=== PATIENT | female | born 1930 | race Caucasian/White ===

== ENCOUNTER 2016-10-31 10:31 | Observation (INO) | payer MEDICARE, OTHER ==
[2016-10-31] VITALS (11 sets, daily range): BP systolic 154–224; BP diastolic 76–108; PULSE 61–85; RESP 16–20; TEMP 96.7–98.5; O2SAT 94–100
[~2016-10-31] VITALS: Ht 162.6 cm; Wt 60.6 kg
[~2016-10-31 10:31] MED LIST: ALPR.25 PO; AMLO2.5T PO; APIX2.5T PO; BC FPOW12 PO; CIPR250T2 PO; GABA300C3 PO; KCL20 PO; LASI20TA PO; LEVO50TA48 PO; LISI-363 PO; METO50TA PO; METO5TAB46 PO; NITR.4T TD; PRAV40TA2 PO; ULTR50TA PO
[2016-10-31] MEDS ORDERED: SODIUM CHLOR 0.9% 1000 ML INJ 1,000 ML IV SCH (10:35)
[2016-10-31] MEDS ORDERED: SODIUM CHLORIDE 0.9% FLUSH 10 ML FLUSH IVF PRN (10:45)
[2016-10-31] MEDS ORDERED: APIX2.5T PO (10:50)
[2016-10-31] MEDS ORDERED: METO2.5T PO (10:50)
[2016-10-31] MEDS ORDERED: HYDR25TA35 PO (10:50)
[2016-10-31] MEDS ORDERED: ZYVO600T PO (10:50)
[2016-10-31] MEDS ORDERED: POTA10CA PO (10:50)
[2016-10-31] MEDS ORDERED: LEVO50TA4 PO (10:50)
[2016-10-31] MEDS ORDERED: NITR1SUB3 SL (10:50)
[2016-10-31] MEDS ORDERED: MAGN500T2 PO (10:50)
[2016-10-31] MEDS ORDERED: DOCU100C PO (10:50)
[2016-10-31] MEDS ORDERED: FURO40TA PO (10:50)
[2016-10-31] MEDS ORDERED: GABA100C4 PO (10:50)
[2016-10-31] MEDS ORDERED: NORC5TAB PO (10:50)
[2016-10-31] MEDS ORDERED: CITA20TA4 PO (10:50)
[2016-10-31] MEDS ORDERED: PRAV40TA2 PO (10:50)
[2016-10-31] MEDS ORDERED: VENTAER INH (10:50)
[2016-10-31] MEDS ORDERED: PRED2.5T PO (10:50)
[2016-10-31] MEDS ORDERED: LATA0.002 EACH EYE (10:50)
[2016-10-31] MEDS ORDERED: LOPE2CAP PO (10:50)
[2016-10-31] MEDS ORDERED: ALLO100T PO (10:50)
[2016-10-31] MEDS ORDERED: MORP1TAB24 PO (10:50)
[2016-10-31 10:54] LABS: BLOOD, URINE NEG (NEG); GLUCOSE,URINE NEG (NEG); KETONE, URINE NEG (NEG); NITRITE,URINE NEG (NEG)
--- NOTE | 2016-10-31 11:00 | PD ---
HPI Chief Complaint: altered mental status Time Seen by Provider: 10:35 Travel History International Travel<30 days: No Contact w/Intl Traveler<30days: No History of Present Illness HPI Patient is an 86-year-old female who presents to emergency room from [facility] for evaluation of altered mental status and possible UTI. Patient is demented, she is unable to provide history of present illness this time. As per [place], patient does have baseline dementia, reports that she is refusing all her medications for the past 2 days and she appears more altered than normal. After review of records that was brought into ER with patient, patient was recently admitted to [facility] on October 22, 2016 after she had an unwitnessed fall from an assisted living facility. Patient ended up with a left femoral neck fracture, Dr. Yu consulted and performed left hip arthroplasty. Patient does have history of dementia, chronic A. fib on Eliquis , CABG, COPD, cirrhosis of the liver. Patient is currently being treated for a urinary tract infection as she is prescribed Zyvox which was started on 10/26/16-. Patient apparently has not been taking her medications and has been refusing all her medications for past 2 days PFSH Past Medical History Arthritis: Yes Asthma: No Autoimmune Disease: No Blood Disorders: No Anxiety: Yes Depression: Yes Cancer: No Cardiac Catheterization: Yes Cardiovascular Problems: Yes High Cholesterol: No Chemotherapy: No Chest Pain: Yes Congestive Heart Failure: Yes COPD: Yes Cerebrovascular Accident: Yes Diabetes: No Diminished Hearing: Yes ([place]) Endocrine: No Gastrointestinal Disorders: Yes GERD: Yes Gout: Yes Genitourinary: No Headaches: Yes Hypertension: Yes Immune Disorder: No Kidney Stones: No Musculoskeletal: Yes Neurologic: Yes Psychiatric: Yes Reproductive: No Respiratory: No Integumentary: Yes (BILATERAL CELLULITIS) Immunizations Current: Yes Migraines: No Myocardial Infarction: Yes Radiation Therapy: No Renal Failure: No Seizures: No Sleep Apnea: No Thyroid Disease: No Ulcer: Yes Menopausal: Yes Past Surgical History Abdominal Surgery: Yes (PERFORATED ULCER) Cardiac Surgery: Yes Coronary Artery Bypass Graft: Yes (X 3 CABG 06/02/02) Coronary Stent: Yes Ear Surgery: No Endocrine Surgery: No Eye Surgery: No Genitourinary Surgery: No Gynecologic Surgery: Yes (HYSTERECTOMY) Hysterectomy: Yes Insulin Pump: No Joint Replacement: No Pacemaker: No Thoracic Surgery: No Other Surgery: Yes (STEPH BREAST IMPLANTS.) Social History Alcohol Use: Yes (ETOH ABUSE) Tobacco Use: No (QUIT IN 1964) Substance Use: Yes (ETOH ABUSE) Allergies-Medications (Allergen,Severity, Reaction): Coded Allergies: Penicillin (Verified Allergy, Severe, sWELLING, DIFFUCLTY BREATHING, ) Reported Meds & Prescriptions Reported Meds & Active Scripts Active Reported Nitroglycerin SL (Nitroglycerin) 0.4 Mg Subl 0.4 Mg SL DIRECTED PRN ONE TABLET UNDER THE TONGUE NEEDED FOR CHEST PAIN, MAY REPEAT EVERY FIVE MINUTES FOR A TOTAL OF 3 DOSES OR CALL 911 IF NO RELIEF Loperamide (Loperamide HCl) 2 Mg Cap 2 Mg PO DIRECTED PRN One capsule after each loose stool. Not to exceed 8 capsules per day. Ventolin Hfa 18 GM Inh (Albuterol Sulfate) 90 Mcg/Act Aer 2 Puff INH Q6H PRN Morphine ER (Morphine Sulfate) 15 Mg Tab 15 Mg PO BID Metolazone 2.5 Mg Tab 2.5 Mg PO DAILY Levothyroxine (Levothyroxine Sodium) 50 Mcg Tab 50 Mcg PO DAILY Docusate Sodium 100 Mg Cap 100 Mg PO BID Gabapentin 100 Mg Cap 200 Mg PO BID Prednisone 2.5 Mg Tab 2.5 Mg PO DAILY Allopurinol 100 Mg Tab 100 Mg PO DAILY Zyvox (Linezolid) 600 Mg Tab 600 Mg PO Q12H Pravastatin 40 Mg Tab 40 Mg PO DAILY Eliquis (Apixaban) 2.5 Mg Tab 2.5 Mg PO BID Hydralazine (Hydralazine HCl) 25 Mg Tab 25 Mg PO TID Take with a meal Citalopram (Citalopram Hydrobromide) 20 Mg Tab 20 Mg PO DAILY Furosemide 40 Mg Tab 40 Mg PO DAILY Latanoprost Opth Drops (Latanoprost) 0.005% Drops 1 Drop EACH EYE HS Refrigerate until opened. Potassium Chloride ER (Potassium Chloride) 10 Meq Cap 10 Meq PO HS [place] (Hydrocodone-Acetaminophen) 5-325 mg Tab 1 Tab PO Q4H PRN Magnesium Oxide 500 Mg Tab 500 Mg PO BID Review of Systems ROS Limitations: Altered Mental Status Physical Exam Narrative GENERAL: moderate distress SKIN: Focused skin assessment warm/dry. HEAD: Atraumatic. Normocephalic. EYES: Pupils equal and round. No scleral icterus. No injection or drainage. ENT: No nasal bleeding or discharge. Mucous membranes pink and moist. NECK: Trachea midline. No JVD. CARDIOVASCULAR: Regular rate and rhythm. No murmur appreciated. RESPIRATORY: No accessory muscle use. Clear to auscultation. Breath sounds equal bilaterally. GASTROINTESTINAL: Abdomen soft, non-tender, nondistended. Hepatic and splenic margins not palpable. MUSCULOSKELETAL: patient with guarding to right wrist, left hip with no drainage , left hip incisions c/d/i NEUROLOGICAL: Awake and screaming on evaluation.. Motor grossly within normal limits. PSYCHIATRIC: Patient agitated and demented Data Data Last Documented VS Vital Signs Date Time Temp Pulse Resp B/P Pulse Ox O2 Delivery O2 Flow Rate FiO2 10/31/16 11:14 97 Nasal Cannula 4 10/31/16 10:57 65 10/31/16 10:57 98.5 16 173/102 Orders Electrocardiogram (10/31/16 10:35) Complete Blood Count With Diff (10/31/16 10:35) Comprehensive Metabolic Panel (10/31/16 10:35) Creatine Kinase (Cpk) (10/31/16 10:35) Prothrombin Time / Inr (Pt) (10/31/16 10:35) Act Partial Throm Time (Ptt) (10/31/16 10:35) Troponin I (10/31/16 10:35) Lactic Acid Sepsis Protocol (10/31/16 10:35) Urinalysis - C+S If Indicated (10/31/16 10:35) Blood Culture (10/31/16 10:35) Chest, Single Ap (10/31/16 10:35) Blood Glucose (10/31/16 10:35) Ecg Monitoring (10/31/16 10:35) Iv Access Insert/Monitor (10/31/16 10:35) Cath For Specimen (10/31/16 10:35) Oximetry (10/31/16 10:35) Sodium Chloride 0.9% Flush (Ns Flush) (10/31/16 10:45) Sodium Chlor 0.9% 1000 Ml Inj (Ns 1000 M (10/31/16 10:35) Wrist, Complete (Owl9dux) (10/31/16 ) Aspirin Ec (Ecotrin Ec) (10/31/16 12:15) Linezolid 600 Mg Premix (Zyvox 600 Mg Pr (10/31/16 12:15) Admit Order (Ed Use Only) (10/31/16 12:15) Labs Laboratory Tests Test 10/31/16 10/31/16 10:43 10:50 Urine Collection Type CATH Urine Color YELLOW Urine Turbidity CLEAR Urine pH 6.0 Urine Specific [place] 1.020 Urine Protein 30 mg/dL Urine Glucose (UA) NEG mg/dL Urine Ketones NEG mg/dL Urine Occult Blood NEG Urine Nitrite NEG Urine Bilirubin NEG Urine Leukocyte Esterase NEG Urine RBC 0-3 /hpf Urine Renal Epithelial Cells 0-5 /hpf Microscopic Urinalysis Comment CULT NOT INDICATED Urine Collection Time 10:43 White Blood Count 10.0 TH/MM3 Red Blood Count 4.22 MIL/MM3 Hemoglobin 12.5 GM/DL Hematocrit 38.4 % Mean Corpuscular Volume 90.9 FL Mean Corpuscular Hemoglobin 29.6 PG Mean Corpuscular Hemoglobin 32.5 % Concent Red Cell Distribution Width 13.3 % Platelet Count 244 TH/MM3 Mean Platelet Volume 8.2 FL Neutrophils (%) (Auto) 86.6 % Lymphocytes (%) (Auto) 7.0 % Monocytes (%) (Auto) 6.0 % Eosinophils (%) (Auto) 0.2 % Basophils (%) (Auto) 0.2 % Neutrophils # (Auto) 8.7 TH/MM3 Lymphocytes # (Auto) 0.7 TH/MM3 Monocytes # (Auto) 0.6 TH/MM3 Eosinophils # (Auto) 0.0 TH/MM3 Basophils # (Auto) 0.0 TH/MM3 CBC Comment DIFF FINAL Differential Comment Erythrocyte Sedimentation Rate 70 mm/hr Prothrombin Time 12.8 SEC Prothromb Time International 1.2 RATIO Ratio Activated Partial 31.7 SEC Thromboplast Time Sodium Level 144 MEQ/L Potassium Level 3.6 MEQ/L Chloride Level 100 MEQ/L Carbon Dioxide Level 35.0 MEQ/L Anion Gap 9 MEQ/L Blood Urea Nitrogen 40 MG/DL Creatinine 1.40 MG/DL Estimat Glomerular Filtration 35 ML/MIN Rate Random Glucose 133 MG/DL Lactic Acid Level 2.0 mmol/L Calcium Level 9.9 MG/DL Total Bilirubin 0.8 MG/DL Aspartate Amino Transf 36 U/L (AST/SGOT) Alanine Aminotransferase 23 U/L (ALT/SGPT) Alkaline Phosphatase 97 U/L Total Creatine Kinase 54 U/L Troponin I 0.13 NG/ML Total Protein 7.3 GM/DL Albumin 2.7 GM/DL MDM Medical Decision Making Medical Screen Exam Complete: Yes Emergency Medical Condition: Yes Interpretation(s) EKG at 1156: afib at 80bpm Vital Signs Date Time Temp Pulse Resp B/P Pulse Ox O2 Delivery O2 Flow Rate FiO2 10/31/16 10:57 97 Nasal Cannula 4 Laboratory Tests Test 10/31/16 10/31/16 10:43 10:50 Urine Collection Type CATH Urine Color YELLOW (YELLW/STRAW) Urine Turbidity CLEAR (CLEAR) Urine pH 6.0 (5.0-8.5) Urine Specific [place] 1.020 (1.002-1.035) Urine Protein 30 mg/dL (NEG-TRACE) Urine Glucose (UA) NEG mg/dL (NEG) Urine Ketones NEG mg/dL (NEG) Urine Occult Blood NEG (NEG) Urine Nitrite NEG (NEG) Urine Bilirubin NEG (NEG) Urine Leukocyte Esterase NEG (NEG) Urine RBC 0-3 /hpf (0-3) Urine Renal Epithelial Cells 0-5 /hpf (NONE) Microscopic Urinalysis Comment CULT NOT INDICATED Urine Collection Time 10:43 White Blood Count 10.0 TH/MM3 (4.0-11.0) Red Blood Count 4.22 MIL/MM3 (4.00-5.30) Hemoglobin 12.5 GM/DL (11.6-15.3) Hematocrit 38.4 % (35.0-46.0) Mean Corpuscular Volume 90.9 FL (80.0-100.0) Mean Corpuscular Hemoglobin 29.6 PG (27.0-34.0) Mean Corpuscular Hemoglobin 32.5 % Concent (32.0-36.0) Red Cell Distribution Width 13.3 % (11.6-17.2) Platelet Count 244 TH/MM3 (150-450) Mean Platelet Volume 8.2 FL (7.0-11.0) Neutrophils (%) (Auto) 86.6 % (16.0-70.0) Lymphocytes (%) (Auto) 7.0 % (9.0-44.0) Monocytes (%) (Auto) 6.0 % (0.0-8.0) Eosinophils (%) (Auto) 0.2 % (0.0-4.0) Basophils (%) (Auto) 0.2 % (0.0-2.0) Neutrophils # (Auto) 8.7 TH/MM3 (1.8-7.7) Lymphocytes # (Auto) 0.7 TH/MM3 (1.0-4.8) Monocytes # (Auto) 0.6 TH/MM3 (0-0.9) Eosinophils # (Auto) 0.0 TH/MM3 (0-0.4) Basophils # (Auto) 0.0 TH/MM3 (0-0.2) CBC Comment DIFF FINAL Differential Comment Sodium Level 144 MEQ/L (136-145) Potassium Level 3.6 MEQ/L (3.5-5.1) Chloride Level 100 MEQ/L (98-107) Carbon Dioxide Level 35.0 MEQ/L (21.0-32.0) Anion Gap 9 MEQ/L (5-15) Blood Urea Nitrogen 40 MG/DL (7-18) Creatinine 1.40 MG/DL (0.50-1.00) Estimat Glomerular Filtration 35 ML/MIN (>89) Rate Random Glucose 133 MG/DL (74-106) Lactic Acid Level 2.0 mmol/L (0.4-2.0) Calcium Level 9.9 MG/DL (8.5-10.1) Total Bilirubin 0.8 MG/DL (0.2-1.0) Aspartate Amino Transf 36 U/L (15-37) (AST/SGOT) Alanine Aminotransferase 23 U/L (10-53) (ALT/SGPT) Alkaline Phosphatase 97 U/L (45-117) Total Creatine Kinase 54 U/L (26-192) Troponin I 0.13 NG/ML (0.02-0.05) Total Protein 7.3 GM/DL (6.4-8.2) Albumin 2.7 GM/DL (3.4-5.0) Last Impressions Chest X-Ray 10/31/16 1035 Signed Impressions: Service Date/Time: Monday, October 31, 2016 11:11 - CONCLUSION: Cardiomegaly without infiltrate. Minimal scarring minor fissure. Rauilto Simental MD Wrist X-Ray 10/31/16 0000 Signed Impressions: Service Date/Time: Monday, October 31, 2016 11:06 - CONCLUSION: 1. Soft tissue swelling or arthritic changes. 2. No fracture. 3. Chondrocalcinosis. Raulito Simental MD Differential Diagnosis UTI, dementia, electrolyte abnormality, pneumonia Narrative Course Patient is an 86-year-old female who presents to emergency room from [facility] for altered mental status. It appears the patient has a urinary tract infection, patient with most likely Enterococcus Faecalis UTI and is currently on zyvox 600mg (october 26-november 05) - and patient has not taken this medication for the past 2 days. Patient with most likely dementia with increased altered mental status secondary to UTI. Plan to obtain lab work, we'll straight catheter for urine, will give IV antibiotics as patient is refusing to take any medications by mouth. Patient will require admission to the hospital. X-ray of the right wrist ordered as patient is guarding her right wrist. Laboratory Tests Test 10/31/16 10/31/16 10:43 10:50 Urine Collection Type CATH Urine Color YELLOW (YELLW/STRAW) Urine Turbidity CLEAR (CLEAR) Urine pH 6.0 (5.0-8.5) Urine Specific [place] 1.020 (1.002-1.035) Urine Protein 30 mg/dL (NEG-TRACE) Urine Glucose (UA) NEG mg/dL (NEG) Urine Ketones NEG mg/dL (NEG) Urine Occult Blood NEG (NEG) Urine Nitrite NEG (NEG) Urine Bilirubin NEG (NEG) Urine Leukocyte Esterase NEG (NEG) Urine RBC 0-3 /hpf (0-3) Urine Renal Epithelial Cells 0-5 /hpf (NONE) Microscopic Urinalysis Comment CULT NOT INDICATED Urine Collection Time 10:43 White Blood Count 10.0 TH/MM3 (4.0-11.0) Red Blood Count 4.22 MIL/MM3 (4.00-5.30) Hemoglobin 12.5 GM/DL (11.6-15.3) Hematocrit 38.4 % (35.0-46.0) Mean Corpuscular Volume 90.9 FL (80.0-100.0) Mean Corpuscular Hemoglobin 29.6 PG (27.0-34.0) Mean Corpuscular Hemoglobin 32.5 % Concent (32.0-36.0) Red Cell Distribution Width 13.3 % (11.6-17.2) Platelet Count 244 TH/MM3 (150-450) Mean Platelet Volume 8.2 FL (7.0-11.0) Neutrophils (%) (Auto) 86.6 % (16.0-70.0) Lymphocytes (%) (Auto) 7.0 % (9.0-44.0) Monocytes (%) (Auto) 6.0 % (0.0-8.0) Eosinophils (%) (Auto) 0.2 % (0.0-4.0) Basophils (%) (Auto) 0.2 % (0.0-2.0) Neutrophils # (Auto) 8.7 TH/MM3 (1.8-7.7) Lymphocytes # (Auto) 0.7 TH/MM3 (1.0-4.8) Monocytes # (Auto) 0.6 TH/MM3 (0-0.9) Eosinophils # (Auto) 0.0 TH/MM3 (0-0.4) Basophils # (Auto) 0.0 TH/MM3 (0-0.2) CBC Comment DIFF FINAL Differential Comment Sodium Level 144 MEQ/L (136-145) Potassium Level 3.6 MEQ/L (3.5-5.1) Chloride Level 100 MEQ/L (98-107) Carbon Dioxide Level 35.0 MEQ/L (21.0-32.0) Anion Gap 9 MEQ/L (5-15) Blood Urea Nitrogen 40 MG/DL (7-18) Creatinine 1.40 MG/DL (0.50-1.00) Estimat Glomerular Filtration 35 ML/MIN (>89) Rate Random Glucose 133 MG/DL (74-106) Lactic Acid Level 2.0 mmol/L (0.4-2.0) Calcium Level 9.9 MG/DL (8.5-10.1) Total Bilirubin 0.8 MG/DL (0.2-1.0) Aspartate Amino Transf 36 U/L (15-37) (AST/SGOT) Alanine Aminotransferase 23 U/L (10-53) (ALT/SGPT) Alkaline Phosphatase 97 U/L (45-117) Total Creatine Kinase 54 U/L (26-192) Troponin I 0.13 NG/ML (0.02-0.05) Total Protein 7.3 GM/DL (6.4-8.2) Albumin 2.7 GM/DL (3.4-5.0) Last Impressions Chest X-Ray 10/31/16 1035 Signed Impressions: Service Date/Time: Monday, October 31, 2016 11:11 - CONCLUSION: Cardiomegaly without infiltrate. Minimal scarring minor fissure. Raulito Simental MD Wrist X-Ray 10/31/16 0000 Signed Impressions: Service Date/Time: Monday, October 31, 2016 11:06 - CONCLUSION: 1. Soft tissue swelling or arthritic changes. 2. No fracture. 3. Chondrocalcinosis. Raulito Simental MD Patient's son at bedside, reviewed all labs and all studies with him in detail. Patient does have a positive troponin, troponin is 0.13, as per son, patient' s button inspector is Dr. Hagen with [facility]. Labs were reviewed, patient with normal white blood cell count, creatinine is mildly elevated at 1.40, UA with no signs of infection plan to obs for positive trop to [facility], unsure why patient's trop is mildly elevated. plan to trend trops while admitted to hospital Will give IV dose of zyvox for treatment of pseudomonas uti as she is supposed to be on zyvox until 11/05/[address] gooden who accepts pt to service Diagnosis Primary Impression: NSTEMI (non-ST elevated myocardial infarction) Additional Impressions: Dehydration Altered mental status, unspecified Admitting Information Admitting Physician Requests: Bridgette Claros DO October 31, 2016 11:00
[2016-10-31 11:03] LABS: METHOD OF COLLECTION CATH; URINE COLOR YELLOW (YELLW/STRAW)
[2016-10-31 11:04] LABS: COMMENT (UR) CULT NOT INDICATED; CULTURE IF INDICATED CULT NOT INDICATED; RBC, URINE 0-3 /hpf (0-3); RENAL EPITHELIAL CELLS 0-5 /hpf
[2016-10-31 11:09] LABS: AUTOMATED NEUTROPHIL # 8.7 TH/MM3 (1.8-7.7); BASOPHIL % 0.2 % (0.0-2.0); EOSINOPHIL % 0.2 % (0.0-4.0); HEMATOCRIT 38.4 % (35.0-46.0); HEMO FLAGS DIFF FINAL; LYMPHOCYTE # 0.7 TH/MM3 (1.0-4.8); MEAN CELL VOLUME 90.9 FL (80.0-100.0); MEAN CORPUSCULAR HEMOGLOBIN 29.6 PG (27.0-34.0); MEAN CORPUSCULAR HGB CONC 32.5 % (32.0-36.0); NEUT % 86.6 % (16.0-70.0); PLATELET COUNT 244 TH/MM3 (150-450); RED BLOOD COUNT 4.22 MIL/MM3 (4.00-5.30); RED CELL DISTRIBUTION WIDTH 13.3 % (11.6-17.2)
[2016-10-31 11:24] LABS: CHLORIDE 100 MEQ/L (98-107); POTASSIUM 3.6 MEQ/L (3.5-5.1); SODIUM (NA) 144 MEQ/L (136-145)
[2016-10-31 11:27] LABS: ANION GAP 9 MEQ/L (5-15)
[2016-10-31 11:28] LABS: BLOOD UREA NITROGEN 40 MG/DL (7-18)
[2016-10-31 11:31] LABS: ALT (GPT) 23 U/L (10-53); AST (GOT) 36 U/L (15-37); GLOMERULAR FILTRATION RATE 35 ML/MIN (>89)
--- NOTE | 2016-10-31 11:31 | RADHPO ---
EXAM DATE/TIME: 10/31/2016 11:11 [facility] COMPARISON: CHEST SINGLE AP, November 04, 2014, 14:15. INDICATIONS : Short of breath. Altered mental status MEDICAL HISTORY : None. SURGICAL HISTORY : CABG. ENCOUNTER: Initial ACUITY: 1 day PAIN SCORE: Non-responsive. LOCATION: Bilateral chest FINDINGS: A single view of the chest demonstrates cardiomegaly and tortuous thoracic aorta. Previous CABG. Mini mal scarring along the minor fissure. Osseous structures are intact. CONCLUSION: Cardiomegaly without infiltrate. Minimal scarring minor fissure. Raulito Simental MD on October 31, 2016 at 11:28 Board Certified Radiologist. This report was verified electronically.
[2016-10-31 11:32] LABS: TOTAL BILIRUBIN ADULT 0.8 MG/DL (0.2-1.0)
[2016-10-31 11:33] LABS: ALKALINE PHOSPHATASE 97 U/L (45-117)
--- NOTE | 2016-10-31 11:33 | RADHPO ---
EXAM DATE/TIME: 10/31/2016 11:06 [facility] COMPARISON: No previous studies available for comparison. INDICATIONS : Right wrist pain with no known injury MEDICAL HISTORY : None. SURGICAL HISTORY : None. ENCOUNTER: Initial ACUITY: 1 day PAIN SCORE: Non-responsive. LOCATION: Right wrist FINDINGS: Three view examination of the right wrist demonstrates soft tissue swelling and arthropathy. Chondroc alcinosis. Bony mineralization is normal. CONCLUSION: 1. Soft tissue swelling or arthritic changes. 2. No fracture. 3. Chondrocalcinosis. Raulito Simental MD on October 31, 2016 at 11:31 Board Certified Radiologist. This report was verified electronically.
[2016-10-31 11:42] LABS: CREATINE KINASE 54 U/L (26-192)
[2016-10-31] MEDS: ASPIRIN EC 81 MG TABEC PO ONE ×2 (12:15→12:27)
[2016-10-31] MEDS ORDERED: LINEZOLID 600 MG PREMIX 300 ML IV ONE (12:15)
[2016-10-31] MEDS ORDERED: ASPIRIN 81 MG CHEW TAB CHEW ONE (12:45)
[2016-10-31 12:48] LABS: APTT (PATIENT) 31.7 SEC (24.3-30.1); INTERNATIONAL NORMALIZED RATIO 1.2 RATIO; PROTHROMBIN TIME - PATIENT 12.8 SEC (9.8-11.6)
[2016-10-31] MEDS ORDERED: hydrALAZINE HCL 20 MG/ML VIAL IV PUSH ONE (13:00)
[2016-10-31] MEDS ORDERED: SODIUM CHLORIDE 0.9% FLUSH 10 ML FLUSH IV FLUSH PRN (13:15)
[2016-10-31] MEDS ORDERED: ONDANSETRON HCL 4 MG/2 ML VIAL IVP PRN (13:15)
[2016-10-31] MEDS: SODIUM CHLOR 0.45% 1000 ML INJ 1,000 ML IV SCH (13:46)
[2016-10-31] MEDS ORDERED: HEPARIN SODIUM - SQ 10,000 UNITS/ML VIAL SQ SCH (14:00)
[2016-10-31] MEDS ORDERED: ENALAPRILAT 1.25 MG/ML VIAL IV PUSH PRN (17:15)
[2016-10-31] MEDS ORDERED: HALOPERIDOL LACTATE 5 MG/ML AMP IV PUSH ONE (17:30)
--- NOTE | 2016-10-31 17:32 | HHI.HP ---
[facility] Service [facility] Primary Care Physician Meli Acosta MD Admission Diagnosis NSTEMI, AMS, Delirium Diagnoses: (1) Encephalopathy, unspecified Diagnosis: Principal (2) Hypertensive urgency Diagnosis: Principal (3) Elevated troponin Diagnosis: Principal (4) Chronic kidney disease, stage 3 Diagnosis: Secondary (5) Atrial fibrillation Diagnosis: Secondary (6) Chronic ischemic right MCA stroke Diagnosis: Secondary (7) COPD (chronic obstructive pulmonary disease) Diagnosis: Secondary Chief Complaint: Patient sent from local nursing facility because of change in mentation Travel History International Travel<30 Days: No Contact w/Intl Traveler <30 Da: No Traveled to Known Affected Are: No History of Present Illness 86-year-old female with dementia, mental status who is brought to the emergency department from local nursing facility because of worsening mentation. The patient herself cannot give any information, information was taken from medical records, nursing staff, retirement records. Family patient is a recent hospitalization at [facility] on October 22, 2016 because she had unwitnessed fall at assisted living facility. Where she had a left femoral neck fracture. Patient did undergo left hip arthroplasty by Dr. Yu at that time. Patient was found to have urinary tract infection was treated with Zyvox. However patient was transferred to [facility] for continued management and care. Apparently the patient has had worsening of her mentation aware of the last 2 day she has been refusing taking any of her medications. Patient came very aggressive and not taking her meds so retirement sent the patient to the hospital for evaluation. Upon presentation patient had significantly elevated hypertension with hypertensive urgency. Patient was given Apresoline in emergency department with minimal results. Patient was found to have elevated troponin level and that point it recommended by ER physician the patient be observed in the hospital for continued management and care. Upon seeing the patient she is unable to give any information. Significant change in mentation, unknown what her baseline is from her dementia. Review of Systems ROS Limitations: Altered Mental Status, Poor Historian Past Family Social History Past Medical History Hypertension Chronic atrial fibrillation Coronary artery disease Hyperlipidemia Degenerative joint disease Anxiety/depression Chronic congestive heart failure Chronic obstructive pulmonary disease History of CVA Gastroesophageal reflux Hypertension History of peptic ulcer disease Recent hip fracture Dementia Hypothyroidism Peripheral neuropathy Chronic venous stasis Past Surgical History Abdominal hysterectomy Appendectomy Bilateral salpingo-oophorectomy Breast augmentation Coronary bypass surgery Cataract surgery Cardiac catheterization with stenting Esophageal dilatation Exploratory laparotomy Femoral artery bypass surgery Lumbar discectomy Reported Medications Last Impressions Chest X-Ray 10/31/16 1035 Signed Impressions: Service Date/Time: Monday, October 31, 2016 11:11 - CONCLUSION: Cardiomegaly without infiltrate. Minimal scarring minor fissure. Raulito Simental MD Wrist X-Ray 10/31/16 0000 Signed Impressions: Service Date/Time: Saturday, October 31, 2016 11:06 - CONCLUSION: 1. Soft tissue swelling or arthritic changes. 2. No fracture. 3. Chondrocalcinosis. Raulito Simental MD Allergies: Coded Allergies: Penicillin (Verified Allergy, Severe, sWELLING, DIFFUCLTY BREATHING, ) Family History Records reviewed and is no indication of any heart disease, lung disease, diabetes, cancer Social History Records reviewed is indicated patient has history of smoking and quit 15 years ago. There is no indication of alcohol or illicit drugs. Physical Exam Vital Signs Vital Signs Date Time Temp Pulse Resp B/P Pulse Ox O2 Delivery O2 Flow Rate FiO2 10/31/16 16:43 98.2 61 17 196/91 94 10/31/16 14:00 67 10/31/16 13:26 80 18 190/76 100 Nasal Cannula 2 10/31/16 13:19 85 222/84 10/31/16 12:55 73 18 224/102 100 Nasal Cannula 4 10/31/16 11:14 97 Nasal Cannula 4 10/31/16 10:57 65 97 Nasal Cannula 4 10/31/16 10:57 98.5 80 16 173/102 97 Nasal Cannula 4 Physical Exam GENERAL: Well-developed, well-nourished, in no acute distress. Awake but unable to obtain any orientation HEENT: Head is normocephalic without any lesions or masses noted. Facial features are symmetric. Patient does have a erythematous papular rash Eyes: Pupils equal round reactive to light. Extraocular muscles are intact. Conjunctivae were clear. Oropharyngeal: Pharynx without any erythema edema. Tongue is midline without deviation. Buccal mucosa is moist without any masses or lesions. NECK: Supple without any masses. Trachea midline no deviation. No JVD, no bruits are appreciated CARDIAC: Regular rhythm, regular rate. S1/S2 are heard. 2/6 ejection murmur noted at second left sternal border. No gallops or rubs. LUNGS: Clear to auscultation bilaterally. No wheeze, rhonchi or rales. No use of accessory muscles on inspiration or expiration. ABDOMEN: Soft, nontender. Nondistended. Bowel sounds heard in all 4 quadrants. No organomegaly or masses. Negative rebound, negative guarding EXTREMITIES: No edema, pulses are equal bilaterally. No cyanosis or clubbing NEUROLOGY: Mood and affect appear appropriate. Cranial nerves II through XII grossly intact. Muscle strength 5/5 in upper and lower extremities bilaterally. Deep tendon reflexes are 2+ in upper and lower extremities bilaterally. Laboratory Laboratory Tests Test 10/31/16 10/31/16 10:43 10:50 Urine Collection Type CATH Urine Color YELLOW Urine Turbidity CLEAR Urine pH 6.0 Urine Specific [place] 1.020 Urine Protein 30 Urine Glucose (UA) NEG Urine Ketones NEG Urine Occult Blood NEG Urine Nitrite NEG Urine Bilirubin NEG Urine Leukocyte Esterase NEG Urine RBC 0-3 Urine Renal Epithelial Cells 0-5 Microscopic Urinalysis Comment CULT NOT INDICATED Urine Collection Time 10:43 White Blood Count 10.0 Red Blood Count 4.22 Hemoglobin 12.5 Hematocrit 38.4 Mean Corpuscular Volume 90.9 Mean Corpuscular Hemoglobin 29.6 Mean Corpuscular Hemoglobin 32.5 Concent Red Cell Distribution Width 13.3 Platelet Count 244 Mean Platelet Volume 8.2 Neutrophils (%) (Auto) 86.6 Lymphocytes (%) (Auto) 7.0 Monocytes (%) (Auto) 6.0 Eosinophils (%) (Auto) 0.2 Basophils (%) (Auto) 0.2 Neutrophils # (Auto) 8.7 Lymphocytes # (Auto) 0.7 Monocytes # (Auto) 0.6 Eosinophils # (Auto) 0.0 Basophils # (Auto) 0.0 CBC Comment DIFF FINAL Differential Comment Prothrombin Time 12.8 Prothromb Time International 1.2 Ratio Activated Partial 31.7 Thromboplast Time Sodium Level 144 Potassium Level 3.6 Chloride Level 100 Carbon Dioxide Level 35.0 Anion Gap 9 Blood Urea Nitrogen 40 Creatinine 1.40 Estimat Glomerular Filtration 35 Rate Random Glucose 133 Lactic Acid Level 2.0 Calcium Level 9.9 Total Bilirubin 0.8 Aspartate Amino Transf 36 (AST/SGOT) Alanine Aminotransferase 23 (ALT/SGPT) Alkaline Phosphatase 97 Total Creatine Kinase 54 Troponin I 0.13 Total Protein 7.3 Albumin 2.7 Date/Time Procedure Status Source Growth 10/31/16 10:55 Aerobic Blood Culture Received Blood Peripheral Pending 10/31/16 10:55 Anaerobic Blood Culture Received Blood Peripheral Pending Result Diagram: 10/31/16 1050 10/31/16 1050 Imaging Last Impressions Chest X-Ray 10/31/16 1035 Signed Impressions: Service Date/Time: Monday, October 31, 2016 11:11 - CONCLUSION: Cardiomegaly without infiltrate. Minimal scarring minor fissure. Raulito Simental MD Wrist X-Ray 10/31/16 0000 Signed Impressions: Service Date/Time: Monday, October 31, 2016 11:06 - CONCLUSION: 1. Soft tissue swelling or arthritic changes. 2. No fracture. 3. Chondrocalcinosis. Raulito Simental MD Assessment and Plan Assessment and Plan Encephalopathy, unspecified Likely secondary to urinary tract infection, worsening dementia from change in home environment, not taking medications, hypertensive urgency We'll control blood pressure, continue treatment for urinary tract infection, see if patient improves Start Haldol for any agitation or aggression Obtain further labs to include B12, folate, TSH, RPR, sedimentation rate We'll obtain CT scan of the brain Hypertensive urgency Secondary to patient not taking her medication from the encephalopathy Start Apresoline, Vasotec IV as needed for systolic blood pressure greater than 160, diastolic blood pressure greater than 90 Once patient is more alert, resume home medications Elevated troponin, non-ST elevated myocardial infarction Likely secondary to hypertensive urgency Patient was given aspirin emergency department We'll start Nitropaste Check lipid panel Continue trending cardiac enzymes and EKGs Urinary tract infection Urinalysis did not indicate any acute abnormality during this hospitalization Resume Zyvox Chronic obstructive pulmonary disease Continue O2 supplementation maintain O2 sats greater than 92% Duo nebs as needed Incentive spirometry Coronary artery disease, hyperlipidemia, chronic atrial fibrillation Continue home medication when patient is more alert and tolerate oral medications Patient is on Eliquis for anticoagulation, will resume when patient is able tolerate by mouth medication Hypothyroidism Check TSH Resume replacement therapy when patient is able tolerate by mouth medications DVT prevention Sequential compression devices, resume Eliquis with patient is more alert and can tolerate by mouth medications Written by Lauro Nichole, acting as scribe for Dr. Rodriguez on 10/31/16 at 17:30. This note was transcribed by scribe Lauro Nichole. I, Dr. Basilio Sosa personally performed the history, physical exam, and medical decision making; and confirmed the accuracy of the information in the transcribed note. Authenticated by Dr. Basilio Sosa on 10/31/16 at 21:59. Problem Qualifiers (1) COPD (chronic obstructive pulmonary disease): Qualified Code: J44.9 - Chronic obstructive pulmonary disease, unspecified COPD type Lauro Nichole October 31, 2016 17:32 Basilio Johnson MD October 31, 2016 21:58
[2016-10-31] MEDS ORDERED: RESP: ALBUTEROL 2.5 MG/IPRATROPIUM 0.5 MG NEB (PRN) NEB (17:45)
[2016-10-31] MEDS: NITROGLYCERIN 2% OINT 1 GM PACKET TOPICAL SCH (18:30)
[2016-10-31] MEDS: SODIUM CHLORIDE 0.9% FLUSH 10 ML FLUSH IV FLUSH SCH (21:00)
[2016-10-31] MEDS: hydrALAZINE HCL 20 MG/ML VIAL IV PUSH PRN (21:01)
[2016-10-31 23:09] LABS: CREATINE KINASE 79 U/L (26-192)
[2016-11-01] VITALS (9 sets, daily range): BP systolic 167–215; BP diastolic 75–109; PULSE 79–92; RESP 18–21; TEMP 96.7–99.2; O2SAT 92–98
[2016-11-01] MEDS: LINEZOLID 600 MG PREMIX 300 ML IV SCH ×3 (00:40→23:49)
[2016-11-01] MEDS: NITROGLYCERIN 2% OINT 1 GM PACKET TOPICAL SCH ×5 (00:40→23:49)
[2016-11-01] MEDS: SODIUM CHLOR 0.45% 1000 ML INJ 1,000 ML IV SCH ×2 (03:06→13:04)
[2016-11-01] MEDS: hydrALAZINE HCL 20 MG/ML VIAL IV PUSH PRN ×2 (07:01→21:45)
[2016-11-01 07:45] LABS: AUTOMATED NEUTROPHIL # 8.9 TH/MM3 (1.8-7.7); BASOPHIL # 0.2 TH/MM3 (0-0.2); EOSINOPHIL # 0.1 TH/MM3 (0-0.4); EOSINOPHIL % 0.7 % (0.0-4.0); HEMATOCRIT 36.4 % (35.0-46.0); LYMPH % 7.3 % (9.0-44.0); LYMPHOCYTE # 0.8 TH/MM3 (1.0-4.8); MEAN CELL VOLUME 92.2 FL (80.0-100.0); MEAN CORPUSCULAR HEMOGLOBIN 30.1 PG (27.0-34.0); MEAN CORPUSCULAR HGB CONC 32.6 % (32.0-36.0); MONO % 4.7 % (0.0-8.0); NEUT % 85.3 % (16.0-70.0); PLATELET COUNT 229 TH/MM3 (150-450); RED BLOOD COUNT 3.95 MIL/MM3 (4.00-5.30); RED CELL DISTRIBUTION WIDTH 13.7 % (11.6-17.2); WHITE BLOOD COUNT 10.5 TH/MM3 (4.0-11.0)
[2016-11-01 07:53] LABS: HEMO FLAGS DIFF FINAL
[2016-11-01 08:14] LABS: ALKALINE PHOSPHATASE 88 U/L (45-117); ALT (GPT) 19 U/L (10-53); ANION GAP 11 MEQ/L (5-15); AST (GOT) 33 U/L (15-37); BICARBONATE 28.7 MEQ/L (21.0-32.0); BLOOD UREA NITROGEN 28 MG/DL (7-18); CHLORIDE 100 MEQ/L (98-107); GLOMERULAR FILTRATION RATE 59 ML/MIN (>89); SODIUM (NA) 140 MEQ/L (136-145); TOTAL BILIRUBIN ADULT 0.7 MG/DL (0.2-1.0)
[2016-11-01 08:19] LABS: POTASSIUM 2.9 MEQ/L (3.5-5.1)
[2016-11-01] MEDS: SODIUM CHLORIDE 0.9% FLUSH 10 ML FLUSH IV FLUSH SCH ×2 (08:20→21:00)
--- NOTE | 2016-11-01 08:55 | RADHPO ---
EXAM DATE/TIME: 11/01/2016 08:33 [place] COMPARISON: CT BRAIN W/O CONTRAST, December 15, 2014, 22:02. INDICATIONS : Altered mental status. RADIATION DOSE: 41.47 CTDIvol (mGy) MEDICAL HISTORY : Congestive hearrt failure. Cerebrovascular disease. Chronic obstructive pulmonary disease.Hypertensi on. Dementia. SURGICAL HISTORY : Hysterectomy. CABG ENCOUNTER: Initial ACUITY: 2 days PAIN SCALE: Non-responsive LOCATION: cranial TECHNIQUE: Multiple contiguous axial images were obtained of the head. Using automated exposure control and adj ustment of the mA and/or kV according to patient size, radiation dose was kept as low as reasonably a chievable to obtain optimal diagnostic quality images. FINDINGS: CEREBRUM: Cerebral atrophy and scattered areas of low attenuation in periventricular white matter. Small areas of encephalomalacia in the lateral lower right parietal lobe. The ventricles are normal for age. No evidence of midline shift, mass lesion, hemorrhage or acute infarction. No extra-axial fluid collect ions are seen. POSTERIOR FOSSA: The cerebellum and brainstem are intact. The 4th ventricle is midline. The cerebellopontine angle i s unremarkable. EXTRACRANIAL: The visualized portion of the orbits is intact. SKULL: The calvaria is intact. No evidence of skull fracture. CONCLUSION: 1. Old small right parietal infarct. 2. Cerebral atrophy and chronic ischemic small vessel vasculopathy. Raulito Simental MD on November 01, 2016 at 8:52 Board Certified Radiologist. This report was verified electronically.
[2016-11-01] MEDS ORDERED: ALBUTEROL SULFATE 90 MCG/ACT HFA 8 GM INHALER INH PRN (09:45)
[2016-11-01 10:11] LABS: HDL CHOLESTEROL 52.8 MG/DL (40.0-60.0); LDL CHOLESTEROL 82 MG/DL (0-99)
[2016-11-01] MEDS: POTASSIUM CHLOR 20 MEQ PREMIX 100 ML IV SCH ×2 (10:23→12:23)
[2016-11-01 10:44] LABS: RAPID PLASMA REAGIN SCREEN NON-REACTIVE (NON-REACTVE)
--- NOTE | 2016-11-01 11:01 | HHI.PR ---
Subjective Remarks Patient laying in bed awake alert she was able to mention her name otherwise she was unable to answer any question she smiles sometimes, her son was at the bedside, he stated this is her baseline since she has her fall. Report from the nurse the patient continued to refuse to take her pills which is initially caused her to be hospitalized for hypertensive urgency Blood pressure dropped from 215/109 to 174/80 Objective Vitals Vital Signs Date Time Temp Pulse Resp B/P Pulse Ox O2 Delivery O2 Flow Rate FiO2 11/01/16 08:00 98.1 86 20 174/80 98 11/01/16 07:43 174/80 11/01/16 06:58 215/109 11/01/16 04:00 96.7 85 21 196/76 96 11/01/16 00:00 97.2 90 20 194/83 97 11/01/16 00:00 97.2 90 20 194/83 97 10/31/16 22:00 154/98 10/31/16 22:00 154/98 10/31/16 21:09 169/98 10/31/16 20:00 96.7 85 20 215/108 95 10/31/16 19:20 95 21 10/31/16 16:43 98.2 61 17 196/91 94 10/31/16 14:00 67 10/31/16 13:26 80 18 190/76 100 Nasal Cannula 2 10/31/16 13:19 85 222/84 10/31/16 12:55 73 18 224/102 100 Nasal Cannula 4 10/31/16 11:14 97 Nasal Cannula 4 10/31/16 10:57 65 97 Nasal Cannula 4 10/31/16 10:57 98.5 80 16 173/102 97 Nasal Cannula 4 I/O 10/31/16 10/31/16 10/31/16 11/01/16 11/01/16 11/01/16 06:59 14:59 22:59 06:59 14:59 22:59 Intake Total 25 ml 1348 ml Balance 25 ml 1348 ml Intake Oral 25 ml IV Total 1348 ml # Voids 3 3 Result Diagram: 11/01/16 0735 11/01/16 0735 Imaging Last Impressions Head CT 11/01/16 0740 Signed Impressions: Service Date/Time: October 08:33 - CONCLUSION: 1. Old small right parietal infarct. 2. Cerebral atrophy and chronic ischemic small vessel vasculopathy. Raulito Simental MD Chest X-Ray 10/31/16 1035 Signed Impressions: Service Date/Time: Monday, October 31, 2016 11:11 - CONCLUSION: Cardiomegaly without infiltrate. Minimal scarring minor fissure. Raulito Simental MD Wrist X-Ray 10/31/16 0000 Signed Impressions: Service Date/Time: Monday, October 31, 2016 11:06 - CONCLUSION: 1. Soft tissue swelling or arthritic changes. 2. No fracture. 3. Chondrocalcinosis. Raulito Simental MD Objective Remarks GENERAL: This is a well-nourished, frail elderly 86 years old female who is demented looks comfortable SKIN: No rashes, warm and dry HEAD: Atraumatic. Normocephalic. EYES: Pupils equal round and reactive. Extraocular motions intact. No scleral icterus. ENT: Nose without bleeding, or drainage, Airway patent. NECK: Trachea midline. Supple CARDIOVASCULAR: Regular rate and rhythm without murmurs, gallops, or rubs. RESPIRATORY: Fair air entry bilaterally. No wheezes, rales, or rhonchi. GASTROINTESTINAL: Abdomen soft, non-tender, nondistended. Positive bowel sounds MUSCULOSKELETAL: Extremities without clubbing, cyanosis, or edema. Pedal pulses appreciated, very tender to touch or movement lower extremity NEUROLOGICAL: Awake and alert but demented. Moves upper extremity, lower extremity very tender to touch or doing any movement. Patient only mention her name A/P Problem List: (1) Encephalopathy, unspecified ICD Code: G93.40 Status: Acute (2) Hypertensive urgency ICD Code: I16.0 Status: Acute (3) Elevated troponin ICD Code: R74.8 Status: Acute (4) Chronic kidney disease, stage 3 ICD Code: N18.3 Status: Acute (5) Atrial fibrillation ICD Code: I48.91 Status: Acute (6) Chronic ischemic right MCA stroke ICD Code: Z86.73 Status: Acute (7) COPD (chronic obstructive pulmonary disease) ICD Code: J44.9 Status: Acute Assessment and Plan 11/01: Patient continued to refuse pills, blood pressure is managed through iv medication, will consult palliative care, discussed with the son and with the nurse 86 years old female presented to the ED with Encephalopathy, unspecified Likely secondary to urinary tract infection, worsening dementia from change in home environment, not taking medications, hypertensive urgency We'll control blood pressure, continue treatment for urinary tract infection, see if patient improves Start Haldol for any agitation or aggression Obtain further labs to include B12, folate, TSH, RPR, sedimentation rate We'll obtain CT scan of the brain Hypertensive urgency Secondary to patient not taking her medication from the encephalopathy Start Apresoline when necessary, Nitropaste, Vasotec IV as needed for systolic blood pressure greater than 160, diastolic blood pressure greater than 90 Once patient is more alert, resume home medications however patient refused the pills Elevated troponin, non-ST elevated myocardial infarction Likely secondary to hypertensive urgency Patient was given aspirin emergency department On Nitropaste Check lipid panel Continue trending cardiac enzymes and EKGs Urinary tract infection Urinalysis did not indicate any acute abnormality during this hospitalization Resume Zyvox Chronic obstructive pulmonary disease Continue O2 supplementation maintain O2 sats greater than 92% Duo nebs as needed Incentive spirometry Coronary artery disease, hyperlipidemia, chronic atrial fibrillation Continue home medication when patient is more alert and tolerate oral medications Patient is on Eliquis for anticoagulation, will resume when patient is able tolerate by mouth medication Hypothyroidism TSH WNL Resume replacement therapy when patient is able tolerate by mouth medications DVT prevention Sequential compression devices, resume Eliquis with patient is more alert and can tolerate by mouth medications Problem Qualifiers (1) COPD (chronic obstructive pulmonary disease): Qualified Code: J44.9 - Chronic obstructive pulmonary disease, unspecified COPD type Alexus Conner MD November 01, 2016 11:01
--- NOTE | 2016-11-01 12:39 | PD.CONS ---
Consult Service Palliative Care . Consult Requested By Dr. Conner . Primary Care Physician Meli Acosta MD . Reason for Consultation a. To assist with evaluation and management of symptoms including: delirium ; pain b. To assist medical decision maker(s) with: better understanding of current medical conditions; weighing benefits/burdens of medical treatment options; making medical treatment decisions. . HPI History of Present Illness Ms Moya is an 86-year-old female usp LONG-TERM resident now at [facility] with a complicated medical history including dementia ; coronary artery disease status post bypass surgery; chronic atrial fibrillation on Eilquis; COPD; hepatic cirrhosis; and recent repair of a left femoral neck fracture earlier this month; who was sent from her facility to the [facility] emergency room In [place] because of altered mental status and refusal to take any of her medications. The patient was also being actively treated for urinary tract infection (snf notes suggest this was from Enterococcus faecalis)she was prescribed Zyvox which she was to take from 11/07 through 11/05/16 but apparently refused to take the medication for the 2 days leading up to the emergency room visit. Ms. Moya had an ND and CABG in 2001. Per her son, she continues to have episodic chest pains and use NTG. Son reports that Ms. Moya was in isolation at the rehab facility due to her UTI.. They attempted to assist with rehab in her room, but the patient was in pain every time they tried to touch her and essentially no rehabilitation has been accomplished since her hip fracture repair. Vital signs in the emergency room are as follows: Temperature 98.5; pulse 65; respiratory rate 16; blood pressure 173/102; pulse oximetry 97% on O2 via nasal cannula at 4 L a minute. Physical examination by the emergency department chair noted the following: Patient appeared to be in moderate distress -- she was awake and screaming on evaluation.. There was guarding of the right wrist. The remainder of the exam was unremarkable. Initial diagnostic testing revealed the following: * CBC showed WBC 10.0; hemoglobin 12.5; platelet count 244 * Urinalysis was benign appearing * Serum chemistry showed sodium 144; potassium 3.6; chloride 100; CO2 35; anion gap 9; BUN 40; creatinine 1.4; GFR 35; glucose 133; lactic acid 2.0; calcium 9.9 * Liver function studies showed total bilirubin 0.8; AST 36; ALT 23; alkaline phosphatase 97; total protein 7.3; albumin 2.7 * Cardiac serology showed total CK at 54; troponin at 0.13 * EKG revealed atrial fibrillation at a rate of 80 bpm * Chest x-ray showed cardiomegaly without infiltrate. * X-ray of the wrist showed some soft tissue swelling and arthritic changes but no fracture. The ER physician felt that the patient's symptoms are most likely due to her urinary tract infection for which she had stopped taking her Zyvox. Given the elevated troponins there were also concerns about a possible non-ST elevation myocardial infarction. In the emergency department the blood pressure went up as high as 224/102. She was given a Apresoline in the emergency department without significant results. The patient was admitted to the hospitalist team. Since arriving in the emergency department, the patient's renal function has improved with BUN coming down to 28 and creatinine coming down to 0.9. BPs are still elevated, but but are in the 168-186/75-85 range. The patient has had stable troponins at 0.12 and 0.13. B-12 and folate levels have been normal. RPR has come back as nonreactive. Blood culture showed no growth to date. CT of the head has revealed only an old small right parietal infarct as well as some cerebral atrophy. The patient's nurse reports that she appears painful with almost any movement of her trunk and legs. She is on no analgesics other than gabapentin which is presumably for her peripheral neuropathy. The patient is unable to localize, quantify, or qualify her pain. . . Function/Cognitive Trajectory Prior to her hip fracture, the patient had been a resident at [facility] for over a year. She could ambulate with a walker there. She has occasional incontinence but was mostly able to toilet herself. She fed herself. She had some significant cognitive deficits. She recognized family, but would often speak to people who were not present, including her and her sister. She would get extremely confused at times and could get combative. The patient's son felt the patient was not losing weight, but that she was declining -- mostly mentally -- over the last year. In the LONG-TERM , the patient was reportedly under hospice care with [facility]. I asked the son if the patient was felt to have a life expectancy of 6 months or less. He said that no one had ever mentioned that to him. He was told that the hospice care under [facility] would help with insurance coverage in the LONG-TERM. The patient fell at the LONG-TERM on 10/22, was transferred to [facility] and underwent left hip arthroplasty on the same day. She was admitted to [facility] following that hospitalization on 10/25/16. As noted above, she was unable to rehab. . Review of Systems ROS Limitations: Clinical Condition (Patient is confused -- ROS taken from medical record and from son as best as possible. ) Constitutional: COMPLAINS OF: Pain, Generalized weakness, DENIES: Fever, Weight gain, Weight loss, Dizziness, Night Sweats Endocrine: DENIES: Heat/cold intolerance, Polydipsia, Polyuria, Polyphagia Eyes: DENIES: Blurred vision, Vision loss Ears, nose, mouth, throat: COMPLAINS OF: Hearing loss, DENIES: Throat pain, Epistaxis Respiratory: COMPLAINS OF: Shortness of breath, DENIES: Apneas, Snoring, Wheezing, Hemoptysis Cardiovascular: COMPLAINS OF: Chest pain, Palpitations, Syncope, Dyspnea on Exertion Gastrointestinal: COMPLAINS OF: Dyspepsia or heartburn, DENIES: Abdominal pain , Black stools, Constipation, Diarrhea, Nausea, Vomiting Genitourinary: COMPLAINS OF: Urinary incontinence (Intermittent ), DENIES: Abnormal vaginal bleeding, Urinary frequency, Dysuria Musculoskeletal: COMPLAINS OF: Joint pain, Muscle aches, Back pain, DENIES: Neck pain Integumentary: COMPLAINS OF: Breast masses (Has implants), DENIES: Rash Hematologic/Lymphatics: DENIES: Bruising Immunologic/Allergic: DENIES: Eczema Neurologic: COMPLAINS OF: Abnormal gait, Headache, DENIES: Paresthesias, Seizures Psychiatric: COMPLAINS OF: Anxiety, Confusion, Depression Past Family Social History Coded Allergies: Penicillin (Verified Allergy, Severe, sWELLING, DIFFUCLTY BREATHING, ) Past Medical History Hypertension Chronic atrial fibrillation Coronary artery disease s/p ND (ND May 2002) Peripheral artery disease status post arterial bypass surgery Hyperlipidemia Degenerative joint disease Anxiety/depression Chronic congestive heart failure Chronic obstructive pulmonary disease History of CVA Jan 2012 Gastroesophageal reflux Hypertension History of peptic ulcer disease Recent hip fracture Dementia Hypothyroidism Peripheral neuropathy Chronic venous stasis Hard of hearing Gout . Past Surgical History Abdominal hysterectomy Appendectomy Bilateral salpingo-oophorectomy Bilateral breast implants Coronary bypass surgery -- 06/02/02 Cataract surgery Cardiac catheterization with stenting Esophageal dilatation Exploratory laparotomy Femoral artery bypass surgery Lumbar discectomy Left carotid endarterectomy Left hip arthroplasty 10/22/2016 . Reported Medications Pre-hospital medications in the nursing facility included the following: Nitroglycerin SL (Nitroglycerin) 0.4 Mg Subl 0.4 Mg SL DIRECTED PRN ONE TABLET UNDER THE TONGUE NEEDED FOR CHEST PAIN, MAY REPEAT EVERY FIVE MINUTES FOR A TOTAL OF 3 DOSES OR CALL 911 IF NO RELIEF Loperamide (Loperamide HCl) 2 Mg Cap 2 Mg PO DIRECTED PRN One capsule after each loose stool -- Not to exceed 8 capsules per day. Ventolin Hfa 18 GM Inh (Albuterol Sulfate) 90 Mcg/Act Aer 2 Puff INH Q6H PRN Morphine ER (Morphine Sulfate) 15 Mg Tab 15 Mg PO BID Metolazone 2.5 Mg Tab 2.5 Mg PO DAILY Levothyroxine (Levothyroxine Sodium) 50 Mcg Tab 50 Mcg PO DAILY Docusate Sodium 100 Mg Cap 100 Mg PO BID Gabapentin 100 Mg Cap 200 Mg PO BID Prednisone 2.5 Mg Tab 2.5 Mg PO DAILY Allopurinol 100 Mg Tab 100 Mg PO DAILY Zyvox (Linezolid) 600 Mg Tab 600 Mg PO Q12H Pravastatin 40 Mg Tab 40 Mg PO DAILY Eliquis (Apixaban) 2.5 Mg Tab 2.5 Mg PO BID Hydralazine (Hydralazine HCl) 25 Mg Tab 25 Mg PO TID Take with a meal Citalopram (Citalopram Hydrobromide) 20 Mg Tab 20 Mg PO DAILY Furosemide 40 Mg Tab 40 Mg PO DAILY Latanoprost Opth Drops (Latanoprost) 0.005% Drops 1 Drop EACH EYE HS Potassium Chloride ER (Potassium Chloride) 10 Meq Cap 10 Meq PO HS Dennehotso (Hydrocodone-Acetaminophen) 5-325 mg Tab 1 Tab PO Q4H PRN Magnesium Oxide 500 Mg Tab 500 Mg PO BID . Current Medications Medications (Trade) Dose Ordered Sig/Renetta Route Start Time Stop Time Status Last Admin (06/25 NS 1000 ml Inj) 1,000 ml @ 75 mls/hr [id number] IV 10/31/16 13:09 11/01/16 03:06 (NS Flush) 2 ml UNSCH PRN IV FLUSH 10/31/16 13:15 (NS Flush) 2 ml BID IV FLUSH 10/31/16 21:00 (Tylenol) 650 mg Q4H PRN PO 10/31/16 13:15 (Zofran Inj) 4 mg Q6H PRN IVP 10/31/16 13:15 (Heparin Inj) 5,000 units Q8HR SQ 10/31/16 14:00 Hold (Haldol Inj) 5 mg Q6H PRN IM 10/31/16 17:15 (Apresoline Inj) 20 mg Q4H PRN IV PUSH 10/31/16 17:15 11/01/16 07:01 (Vasotec Inj) 1.25 mg Q6H PRN IV PUSH 10/31/16 17:15 Nitroglycerin 1 inch 1 inch Q6HR TOPICAL 10/31/16 18:00 11/01/16 06:53 (Zyvox 600 Mg Premix) 300 ml @ 300 mls/hr Q12H IV 11/01/16 00:00 11/01/16 00:40 (KCl) 40 meq Q4H PO 11/01/16 09:45 11/01/16 13:46 (Proair Hfa Inh) 2 puff Q6H PRN INH 11/01/16 09:45 (Zyloprim) 100 mg DAILY PO 11/01/16 09:45 (Eliquis) 2.5 mg BID PO 11/01/16 09:45 (CeleXA) 20 mg DAILY PO 11/01/16 09:45 (Lasix) 40 mg DAILY PO 11/01/16 09:45 (Neurontin) 200 mg BID PO 11/01/16 09:45 (Apresoline) 25 mg TID PO 11/01/16 13:00 (Synthroid) 50 mcg DAILY@06 PO 11/02/16 06:00 (Zaroxolyn) 2.5 mg DAILY PO 11/01/16 09:45 (Pravachol) 40 mg DAILY PO 11/01/16 09:45 Magnesium Oxide 400 mg 400 mg BID PO 11/01/16 10:30 (KCl 20 Meq Premix Inj) 100 ml @ 25 mls/hr Q2H IV 11/01/16 10:23 11/01/16 14:22 . Family History * The patient's father of heart disease. * The patient's mother of stroke. * Several brothers/sisters had heart disease. . Substance Use Tobacco: assisted smoker. No recent use. Alcohol: Long hx of EtOH abuse Prescription med abuse: No known abuse of prescription medications. Illicits: No known use of illicits . Psychosocial History The patient is originally from [place]. She has lived in [place] since 1958. She has a high school education. 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 No experience. Ms. Moya was once. Her approximately 5 years ago while hospitalized at [facility] in [place]. He was under the care of the palliative care program at the time. The couple had one sonElmer Moya. Elmer lives locally and is the patient's power of weigher operator for both healthcare and financial affairs. . Spiritual/Cultural Factors Sabianist Son indicates that anabaptism and spirituality were not an important part of her life. He does not think she would benefit from automatic corn grinder operator visits at this time, but might if she becomes more awake and alert. . Living Will: Copy in medical record Durable Power of Tablet Technician: Copy in medical record Date completed: 10/24/2009 is date of Living Will, Durable power of weigher operator for health care; Durable power of weigher operator for financial affairs. . Health Care Surrogate(s): Health care surrogate (POA) lists Rodriguez Moya first and Elmer Moya as alternate. . Documented care wishes: The living will is a typical CT living will and asserts that the patient would not want life-prolonging measures should she be found to have a terminal illness , end stage condition, or persistent vegetative state. . Today's verbally stated goals: Patient is confused and is not capacitated to discuss her own health care goals/ preferences. . Family/friends goals: Son reports that the patient would not want aggressive life-prolonging treatments at this time. He is certain she would not want resuscitation attempts. He is also certain she would not want a feeding tube. If it appears she will not be able to rehab and will remain bed/chair bound for the rest of her life, she would really just want comfort meaures only. . Ethical and Legal Issues Patient is incapacitated to make her own health care decisions. Given her progressive dementia, she will not regain capacity to do so. . Physical Exam Vital Signs Date Time Temp Pulse Resp B/P Pulse Ox O2 Delivery O2 Flow Rate FiO2 11/01/16 11:52 99.2 92 20 186/85 95 11/01/16 08:00 98.1 86 20 174/80 98 11/01/16 07:43 174/80 11/01/16 06:58 215/109 11/01/16 04:00 96.7 85 21 196/76 96 11/01/16 00:00 97.2 90 20 194/83 97 11/01/16 00:00 97.2 90 20 194/83 97 10/31/16 22:00 154/98 10/31/16 22:00 154/98 10/31/16 21:09 169/98 10/31/16 20:00 96.7 85 20 215/108 95 10/31/16 19:20 95 21 10/31/16 16:43 98.2 61 17 196/91 94 10/31/16 14:00 67 10/31/16 13:26 80 18 190/76 100 Nasal Cannula 2 10/31/16 13:19 85 222/84 10/31/16 12:55 73 18 224/102 100 Nasal Cannula 4 . 10/31/16 11/01/16 19:00 07:00 Intake Total 25 ml 1348 ml Balance 25 ml 1348 ml Intake Oral 25 ml IV Total 1348 ml # Voids 6 . Exam CONSTITUTIONAL/GENERAL: This is an adequately nourished patient. She awakens to voice/exam but easily drifts back to sleep. She will smile, but quickly grimaces with any movement of either lower extremity. TUBES/LINES/DRAINS: Peripheral IV SKIN: No jaundice, rashes, or lesions. Ecchymoses on upper extremities. No wounds seen anteriorly. Skin temperature appropriate. Not diaphoretic. HEAD: Atraumatic. Normocephalic. EYES: Pupils equal and round and reactive. Extraocular motions intact. No scleral icterus. No injection or drainage. Fundi not examined. ENT: Grossly hard of hearing. Nose without bleeding or purulent drainage. Throat without visible erythema, exudates, masses, or lesions. NECK: Trachea midline. Supple, nontender. No palpable thyroid enlargement or nodularity. CARDIOVASCULAR: Irregularly irregular rhythm without murmurs, gallops, or rubs. No JVD. Peripheral pulses symmetric. RESPIRATORY/CHEST: Symmetric, unlabored respirations. Clear to auscultation. Breath sounds equal bilaterally. No wheezes, rales, or rhonchi. GASTROINTESTINAL: Abdomen soft, non-tender, nondistended. No hepato-splenomegaly , or palpable masses. No guarding. Bowel sounds present. GENITOURINARY: Without palpable bladder distension. MUSCULOSKELETAL: Extremities without clubbing, cyanosis, or edema. Swelling of MCP joints on right hand. No calf tenderness. No mottling or clubbing. LYMPHATICS: No palpable cervical or supraclavicular adenopathy. NEUROLOGICAL: Awakens easily to voice/exam, but quickly drifts back to sleep. Motor and sensory grossly within normal limits. Resists movement of lower extremities and grimaces with any movement. Follows simple commands. Oriented to person only. PSYCHIATRIC: No obvious anxiety/depression. No apparent hallucinations or other psychotic thought process. . Diagnostic Tests Laboratory Laboratory Tests Test 10/31/16 10/31/16 10/31/16 10/31/16 10:43 10:50 17:30 22:40 Urine Collection Type CATH Urine Color YELLOW (YELLW/STRAW) Urine Turbidity CLEAR (CLEAR) Urine pH 6.0 (5.0-8.5) Urine Specific [place] 1.020 (1.002-1.035) Urine Protein 30 mg/dL (NEG-TRACE) Urine Glucose (UA) NEG mg/dL (NEG) Urine Ketones NEG mg/dL (NEG) Urine Occult Blood NEG (NEG) Urine Nitrite NEG (NEG) Urine Bilirubin NEG (NEG) Urine Leukocyte Esterase NEG (NEG) Urine RBC 0-3 /hpf (0-3) Urine Renal Epithelial Cells 0-5 /hpf (NONE) Microscopic Urinalysis Comment CULT NOT INDICATED Urine Collection Time 10:43 White Blood Count 10.0 TH/MM3 (4.0-11.0) Red Blood Count 4.22 MIL/MM3 (4.00-5.30) Hemoglobin 12.5 GM/DL (11.6-15.3) Hematocrit 38.4 % (35.0-46.0) Mean Corpuscular Volume 90.9 FL (80.0-100.0) Mean Corpuscular Hemoglobin 29.6 PG (27.0-34.0) Mean Corpuscular Hemoglobin 32.5 % Concent (32.0-36.0) Red Cell Distribution Width 13.3 % (11.6-17.2) Platelet Count 244 TH/MM3 (150-450) Mean Platelet Volume 8.2 FL (7.0-11.0) Neutrophils (%) (Auto) 86.6 % (16.0-70.0) Lymphocytes (%) (Auto) 7.0 % (9.0-44.0) Monocytes (%) (Auto) 6.0 % (0.0-8.0) Eosinophils (%) (Auto) 0.2 % (0.0-4.0) Basophils (%) (Auto) 0.2 % (0.0-2.0) Neutrophils # (Auto) 8.7 TH/MM3 (1.8-7.7) Lymphocytes # (Auto) 0.7 TH/MM3 (1.0-4.8) Monocytes # (Auto) 0.6 TH/MM3 (0-0.9) Eosinophils # (Auto) 0.0 TH/MM3 (0-0.4) Basophils # (Auto) 0.0 TH/MM3 (0-0.2) CBC Comment DIFF FINAL Differential Comment Erythrocyte Sedimentation Rate 70 mm/hr (0-30) Prothrombin Time 12.8 SEC (9.8-11.6) Prothromb Time International 1.2 RATIO Ratio Activated Partial 31.7 SEC Thromboplast Time (24.3-30.1) Sodium Level 144 MEQ/L (136-145) Potassium Level 3.6 MEQ/L (3.5-5.1) Chloride Level 100 MEQ/L (98-107) Carbon Dioxide Level 35.0 MEQ/L (21.0-32.0) Anion Gap 9 MEQ/L (5-15) Blood Urea Nitrogen 40 MG/DL (7-18) Creatinine 1.40 MG/DL (0.50-1.00) Estimat Glomerular Filtration 35 ML/MIN (>89) Rate Random Glucose 133 MG/DL (74-106) Lactic Acid Level 2.0 mmol/L (0.4-2.0) Calcium Level 9.9 MG/DL (8.5-10.1) Total Bilirubin 0.8 MG/DL (0.2-1.0) Aspartate Amino Transf 36 U/L (15-37) (AST/SGOT) Alanine Aminotransferase 23 U/L (10-53) (ALT/SGPT) Alkaline Phosphatase 97 U/L (45-117) Total Creatine Kinase 54 U/L (26-192) 62 U/L (26-192) 79 U/L (26-192) Troponin I 0.13 NG/ML 0.12 NG/ML 0.12 NG/ML (0.02-0.05) (0.02-0.05) (0.02-0.05) Total Protein 7.3 GM/DL (6.4-8.2) Albumin 2.7 GM/DL (3.4-5.0) Vitamin B12 Level 910 PG/ML (193-986) Folate GREATER THAN 20.0 NG/ML (3.1-17.5) Thyroid Stimulating Hormone 1.150 uIU/ML 3rd Gen (0.358-3.740) Test 10/31/16 11/01/16 22:45 07:35 Rapid Plasma Reagin NON-REACTIVE (NON-REACTVE) White Blood Count 10.5 TH/MM3 (4.0-11.0) Red Blood Count 3.95 MIL/MM3 (4.00-5.30) Hemoglobin 11.9 GM/DL (11.6-15.3) Hematocrit 36.4 % (35.0-46.0) Mean Corpuscular Volume 92.2 FL (80.0-100.0) Mean Corpuscular Hemoglobin 30.1 PG (27.0-34.0) Mean Corpuscular Hemoglobin 32.6 % Concent (32.0-36.0) Red Cell Distribution Width 13.7 % (11.6-17.2) Platelet Count 229 TH/MM3 (150-450) Mean Platelet Volume 7.8 FL (7.0-11.0) Neutrophils (%) (Auto) 85.3 % (16.0-70.0) Lymphocytes (%) (Auto) 7.3 % (9.0-44.0) Monocytes (%) (Auto) 4.7 % (0.0-8.0) Eosinophils (%) (Auto) 0.7 % (0.0-4.0) Basophils (%) (Auto) 2.0 % (0.0-2.0) Neutrophils # (Auto) 8.9 TH/MM3 (1.8-7.7) Lymphocytes # (Auto) 0.8 TH/MM3 (1.0-4.8) Monocytes # (Auto) 0.5 TH/MM3 (0-0.9) Eosinophils # (Auto) 0.1 TH/MM3 (0-0.4) Basophils # (Auto) 0.2 TH/MM3 (0-0.2) CBC Comment DIFF FINAL Differential Comment Sodium Level 140 MEQ/L (136-145) Potassium Level 2.9 MEQ/L (3.5-5.1) Chloride Level 100 MEQ/L (98-107) Carbon Dioxide Level 28.7 MEQ/L (21.0-32.0) Anion Gap 11 MEQ/L (5-15) Blood Urea Nitrogen 28 MG/DL (7-18) Creatinine 0.90 MG/DL (0.50-1.00) Estimat Glomerular Filtration 59 ML/MIN (>89) Rate Random Glucose 122 MG/DL (74-106) Calcium Level 9.5 MG/DL (8.5-10.1) Total Bilirubin 0.7 MG/DL (0.2-1.0) Aspartate Amino Transf 33 U/L (15-37) (AST/SGOT) Alanine Aminotransferase 19 U/L (10-53) (ALT/SGPT) Alkaline Phosphatase 88 U/L (45-117) Total Protein 6.2 GM/DL (6.4-8.2) Albumin 2.4 GM/DL (3.4-5.0) Triglycerides Level 71 MG/DL (42-150) Cholesterol Level 149 MG/DL (120-200) LDL Cholesterol 82 MG/DL (0-99) HDL Cholesterol 52.8 MG/DL (40.0-60.0) Cholesterol/HDL Ratio 2.82 RATIO . Result Diagram: 11/01/16 0735 11/01/16 0735 Microbiology Microbiology Date/Time Procedure Status Source Growth 10/31/16 10:50 Aerobic Blood Culture - Preliminary Resulted Blood Peripheral NO GROWTH IN 1 DAY 10/31/16 10:50 Anaerobic Blood Culture - Preliminary Resulted Blood Peripheral NO GROWTH IN 1 DAY 10/31/16 10:55 Aerobic Blood Culture - Preliminary Resulted Blood Peripheral NO GROWTH IN 1 DAY 10/31/16 10:55 Anaerobic Blood Culture - Preliminary Resulted Blood Peripheral NO GROWTH IN 1 DAY . Imaging Last Impressions Head CT 11/01/16 0740 Signed Impressions: Service Date/Time: October 08:33 - CONCLUSION: 1. Old small right parietal infarct. 2. Cerebral atrophy and chronic ischemic small vessel vasculopathy. Raulito Simental MD Chest X-Ray 10/31/16 1035 Signed Impressions: Service Date/Time: Monday, October 31, 2016 11:11 - CONCLUSION: Cardiomegaly without infiltrate. Minimal scarring minor fissure. Raulito Simental MD Wrist X-Ray 10/31/16 0000 Signed Impressions: Service Date/Time: Monday, October 31, 2016 11:06 - CONCLUSION: 1. Soft tissue swelling or arthritic changes. 2. No fracture. 3. Chondrocalcinosis. Raulito Simental MD . Patient/Family Conference Present at Family Conference: Elmer Moya -- son and DPOA for health care . Family Conference Time (mins): 30 Family Conference Location: Telephone Issues Discussed: * Palliative care role, purpose, approach * Additional medical, psychosocial, and spiritual history * Patients general health, functional status, and cognitive changes in the months leading up to the current hospitalization * Family understanding of the current medical problems * Family understanding of prognosis * Patients goals of care as best understood from advance directives and/or conversations and/or values * Current medical treatment options and benefits/burdens of those options * Likely scenarios comparing ongoing aggressive care with a transition to comfort measures only * Questions answered to the best of my ability * Palliative care contact information provided . Assessment and Plan Disease Oriented Problem List: (1) Altered mental status, unspecified Comment: Patient normally has some confusion and intermittent combativeness. However, in 2 days leading up to her hospitlization, she refused to take any of her oral meds. . (2) Hypertensive urgency Comment: Improving (3) Elevated troponin Comment: Possible NSTEMI. Patient with history of CAD s/p CABG and still with intermittent angina. . (4) Atrial fibrillation Comment: Chronic -- has been on Eliquis . (5) COPD (chronic obstructive pulmonary disease) (6) Generalized weakness (7) Gout (8) Hypothyroidism (9) Peripheral neuropathy (10) Hard of hearing (11) History of stroke Symptom Scale: (1) Pain 0-10 Scale: Unable to quantify Comment: Normally has some arthritis pains, occasional chest pain, occasional abdominal pain that she is otherwise unable to quantify/qualify. Appears to be having some significant pain with any movement of the trunk or lower extremities possibly due to her recent left femur fracture. . (2) Confusion 0-10 Scale: Unable to quantify Comment: Patient recognizes family members but her recent baseline has been one of increasing confusion, occasional hallucinations (sees her and sister in the room and will talk to them). There is also occasional combativeness. Uncertain if this is dementia or perhaps a Wernicke' s - Korsakoff syndrome from prolonged EtOH abuse. . Pertinent Non-Medical Issues Psychosocial: Only family is her son who lives locally. Spiritual: From a Sabianist tradition. Christianity and spirituality have not played an important role in her life. Son believes she might appreciate a filter tender visit if/when she become more alert and less confused. Legal: Living will and DPOA for health care and finances is scanned into the EMR. Son is her legal health care decision maker. Ethical issues impacting care: Patient is incapacitated and will not be re- gaining capacity to make her own health care decisions. . Important Contacts * Elmer Moya (son; DPOA) C: [phone] H: * Becki Moya ([id number]) C: [phone] H: [phone] . Prognosis Ms. Moya has had a significant cognitive decline over the last year according to her son. Now she is suffered a left hip fracture earlier this month and due to her impaired cognitive function, and pain, she has been unable to participate in rehabilitation. If she is not able to participate in rehabilitation soon, the chances of her becoming ambulatory again are quite remote. Given her multiple underlying health problems once she becomes bed/ chair bound her life expectancy will probably be in the order of months. This is particularly true as her son feels she would not want aggressive care, including rehospitalization, should she become bed/chair bound. We have yet to see, as well, what happens with nutritional intake. Son feel strongly that she would not want a feeding tube placed. If she is unable to meet her calorie needs, and a feeding tube is declined, life expectancy will also be relatively short. Conversely, if she becomes less confused, is interested in eating and drinking, and becomes able to participate in rehabilitation, life expectancy could easily be greater than one year. . Code Status: No Code Plan == Code Status: NO CODE per conversation with patient's health care power of weigher operator (Elmer Moya ) on 11/01/16. == Decision Making: Patient has progressive dementia and is incapacitated to make her own health care decisions. Her son -- Elmer Moya -- is her designated health care power of weigher operator (documents are scanned into the EMR). == Goals of medical treatment: Son would like to see if acute confusion can be helped, if pain can be controlled , and if patient might successfully participate in rehab. Patient would not want a feeding tube. If rehab cannot happen, then patient would be bed/chair bound and son feels patient would just want "comfort measures only" at that point. Patient was under [facility] care while in her LONG-TERM prior to her hip fracture, but son had no idea that hospice was supposed to be for individuals with a life expectancy of 6 months or less. == Pain: Patient is clearly uncomfortable with almost any re-positioning and movement of her lower extremities. If this seems out of proportion to what is expected post operatively, we may want to re-image the hip to make sure there has not been a subluxation or other post-op problem. Otherwise, she will probably need, at the very least, some scheduled acetaminophen or low dose opiate. == Delirium: Recommend scheduling some low dose haloperidol (e.g. 0.5 mg po q 8 hours ATC) to help prevent some of patient's acute confusional states and her occasional combative states. == At time of discharge, please make sure patient leaves with a completed [facility] DNR form. == Disposition: If patient becomes cooperative with medication and appears as if she might be able to cooperate with a rehabilitation program, then it would make sense to send her back to [facility]. If it appears she will not be able to participate in rehabilitation and/or she is not meeting nutritional needs ( and feeding tube continues to be declined), than transitioning to hospice would make sense given the goals expressed by her son. As noted above, the patient was apparently under the care of [facility] while in her LONG-TERM, though the son claims he had no idea this was for end-of-life care and that hospice enrollment required an estimated life expectancy of 6 months or less. == The patient's son is familiar with our palliative care program. His father in [facility] in 2011 and palliative care was involved in his care. The patient participated in some difficult decision making regarding her then and that has helped son know what the patient would and would not want. Thank you for the opportunity to participate in the care of Ms. Moya. . Attestation To help prompt me to consider important information that might be impacting today's encounter and assessment, information from prior notes written by myself or my colleagues may have been "brought forward" into today's note. My signature on this note, however, is an attestation that I personally performed the exam, history, and/or decision-making noted today, and, unless otherwise indicated, the interactions with patient, family, and staff as well as the review of records all occurred today. I also attest that the listed assessment and stated plan reflect my best clinical judgment today based on the combination of historical information, prior notes, and today's exam/ interactions. When time spent is documented, it refers only to time spent today by the signer, or if indicated, combined time spent today by collaborating physician/nurse practitioner. . Kailash Floyd MD November 01, 2016 12:38
[2016-11-01] MEDS: POTASSIUM CHLORIDE 10 MEQ CONTROLLED RELEASE TAB PO SCH ×2 (13:01→13:45)
[2016-11-01] MEDS: GABAPENTIN 100 MG CAP PO SCH ×2 (13:01→21:29)
[2016-11-01] MEDS: hydrALAZINE HCL 25 MG TAB PO SCH ×2 (13:01→16:21)
[2016-11-01] MEDS: CITALOPRAM HYDROBROMIDE 20 MG TAB PO SCH (13:02)
[2016-11-01] MEDS: PRAVASTATIN SOD 40 MG TAB PO SCH (13:02)
[2016-11-01] MEDS: APIXABAN 2.5 MG TABLET PO SCH ×2 (13:02→21:29)
[2016-11-01] MEDS: FUROSEMIDE 40 MG TAB PO SCH (13:02)
[2016-11-01] MEDS: ALLOPURINOL 100 MG TAB PO SCH (13:02)
[2016-11-01] MEDS: MAGNESIUM OXIDE 400 MG TAB PO SCH ×2 (13:03→21:29)
[2016-11-01] MEDS: METOLAZONE 2.5 MG TAB PO SCH (13:05)
--- NOTE | 2016-11-01 15:46 | EKG ---
Date Performed: 10/31/2016 Time Performed: 22:26:44 PTAGE: 86 years EKG: Atrial fibrillation Possible septal infarct - age undetermined Possible inferior infarct - age undetermined Lateral ST-T changes may be due to myocardial ischemia Abnormal ECG PREVIOUS TRACING : 10/31/2016 11.56 Compared to prior tracing no significant change DOCTOR: Fredo Gonzalez Interpretating Date/Time 11/01/2016 15:44:17
--- NOTE | 2016-11-01 15:46 | EKG ---
Date Performed: 10/31/2016 Time Performed: 11:56:10 PTAGE: 86 years EKG: Atrial fibrillation Anteroseptal infarct - age undetermined Inferior/lateral ST-T changes m ay be due to myocardial ischemia Abnormal ECG PREVIOUS TRACING : 11/04/2014 12.59 Compared to prior tracing no significant change DOCTOR: Fredo Gonzalez Interpretating Date/Time 11/01/2016 15:43:59
--- NOTE | 2016-11-01 15:46 | EKG ---
Date Performed: 10/31/2016 Time Performed: 17:30:00 PTAGE: 86 years EKG: Atrial fibrillation. Possible septal infarct - age undetermined Possible inferior infarct - age undetermined Lateral ST-T changes may be due to myocardial ischemia Abnormal ECG PREVIOUS TRACING : 11/04/2014 12.59 Compared to prior tracing no significant change DOCTOR: Fredo Gonzalez Interpretating Date/Time 11/01/2016 15:44:09
--- NOTE | 2016-11-01 15:47 | EKG ---
Date Performed: 11/01/2016 Time Performed: 07:29:48 PTAGE: 86 years EKG: Atrial fibrillation with PVC(s). Possible septal infarct - age undetermined Possible inferi or infarct - age undetermined Lateral ST-T changes may be due to myocardial ischemia Abnormal ECG PREVIOUS TRACING : 10/31/2016 22.26 Compared to prior tracing no significant change DOCTOR: Fredo Gonzalez Interpretating Date/Time 11/01/2016 15:44:26
[2016-11-01] MEDS ORDERED: POTASSIUM CHLORIDE 25 MEQ EFFERVESCENT TAB PO ONE (17:00)
[2016-11-02] VITALS (8 sets, daily range): BP systolic 134–163; BP diastolic 59–95; PULSE 68–84; RESP 15–18; TEMP 95.5–99; O2SAT 92–98
[2016-11-02] MEDS: LEVOTHYROXINE SODIUM 50 MCG TAB PO SCH (05:50)
[2016-11-02] MEDS: SODIUM CHLOR 0.45% 1000 ML INJ 1,000 ML IV SCH ×2 (05:51→18:29)
[2016-11-02] MEDS: hydrALAZINE HCL 20 MG/ML VIAL IV PUSH PRN (05:51)
[2016-11-02] MEDS: NITROGLYCERIN 2% OINT 1 GM PACKET TOPICAL SCH ×3 (05:51→17:34)
[2016-11-02 06:45] LABS: AUTOMATED NEUTROPHIL # 8.7 TH/MM3 (1.8-7.7); BASOPHIL % 0.1 % (0.0-2.0); EOSINOPHIL # 0.2 TH/MM3 (0-0.4); EOSINOPHIL % 1.6 % (0.0-4.0); HEMATOCRIT 33.8 % (35.0-46.0); HEMO FLAGS DIFF FINAL; LYMPH % 9.9 % (9.0-44.0); MEAN CELL VOLUME 90.8 FL (80.0-100.0); MEAN CORPUSCULAR HEMOGLOBIN 30.5 PG (27.0-34.0); MEAN CORPUSCULAR HGB CONC 33.6 % (32.0-36.0); MONO % 3.7 % (0.0-8.0); NEUT % 84.7 % (16.0-70.0); PLATELET COUNT 236 TH/MM3 (150-450); RED BLOOD COUNT 3.73 MIL/MM3 (4.00-5.30); RED CELL DISTRIBUTION WIDTH 13.5 % (11.6-17.2); WHITE BLOOD COUNT 10.3 TH/MM3 (4.0-11.0)
[2016-11-02 06:48] LABS: POTASSIUM 3.2 MEQ/L (3.5-5.1)
[2016-11-02 06:52] LABS: BICARBONATE 26.1 MEQ/L (21.0-32.0)
[2016-11-02] MEDS: APIXABAN 2.5 MG TABLET PO SCH ×2 (10:49→20:44)
[2016-11-02] MEDS: FUROSEMIDE 40 MG TAB PO SCH (10:49)
[2016-11-02] MEDS: GABAPENTIN 100 MG CAP PO SCH ×2 (10:49→20:45)
[2016-11-02] MEDS: PRAVASTATIN SOD 40 MG TAB PO SCH (10:49)
[2016-11-02] MEDS: MAGNESIUM OXIDE 400 MG TAB PO SCH ×2 (10:49→20:44)
[2016-11-02] MEDS: METOLAZONE 2.5 MG TAB PO SCH (10:49)
[2016-11-02] MEDS: SODIUM CHLORIDE 0.9% FLUSH 10 ML FLUSH IV FLUSH SCH ×2 (10:50→20:45)
[2016-11-02] MEDS: CITALOPRAM HYDROBROMIDE 20 MG TAB PO SCH (10:50)
[2016-11-02] MEDS: ALLOPURINOL 100 MG TAB PO SCH (10:50)
[2016-11-02] MEDS: HALOPERIDOL LACTATE 5 MG/ML AMP IM PRN ×2 (10:51→17:34)
[2016-11-02] MEDS: hydrALAZINE HCL 25 MG TAB PO SCH ×3 (10:55→17:34)
[2016-11-02] MEDS: LINEZOLID 600 MG PREMIX 300 ML IV SCH (11:00)
--- NOTE | 2016-11-02 11:13 | HHI.PR ---
Subjective Remarks Patient more interactive today she still in me she is okay to take the medication however the nurse reported that she continued to refuse earlier this morning when she was offered her medication I reviewed palliative care notes appreciated their input, recommending continue trying to see the patient able to comply with her medical regimen so she can go back to the rehabilitation otherwise she continued to decline her nutrition per medication and maybe she is qualified for hospice again Objective Vitals Vital Signs Date Time Temp Pulse Resp B/P Pulse Ox O2 Delivery O2 Flow Rate FiO2 11/02/16 08:49 99.0 84 15 163/78 97 11/02/16 06:20 153/72 11/02/16 04:00 95.5 78 18 160/82 92 11/02/16 00:00 96.6 80 16 145/75 97 11/01/16 20:00 98.4 82 18 167/77 92 11/01/16 20:00 82 11/01/16 15:33 97.4 79 20 168/75 96 11/01/16 13:00 82 11/01/16 11:52 99.2 92 20 186/85 95 I/O 11/01/16 11/01/16 11/01/16 11/02/16 11/02/16 11/02/16 07:00 15:00 23:00 07:00 15:00 23:00 Intake Total 1348 ml 1200 ml 20 ml 10 ml Balance 1348 ml 1200 ml 20 ml 10 ml Intake Oral 0 ml 20 ml 10 ml IV Total 1348 ml 1200 ml # Voids 3 2 1 1 # Bowel Movements 0 Result Diagram: 11/02/1662911/02/1630 Objective Remarks GENERAL: This is a well-nourished, frail elderly 86 years old female , looks comfortable but demented SKIN: No rashes, warm and dry HEAD: Atraumatic. Normocephalic. EYES: Pupils equal round and reactive. Extraocular motions intact. No scleral icterus. ENT: Nose without bleeding, or drainage, Airway patent. NECK: Trachea midline. Supple CARDIOVASCULAR: Regular rate and rhythm without murmurs, gallops, or rubs. RESPIRATORY: Fair air entry bilaterally. No wheezes, rales, or rhonchi. GASTROINTESTINAL: Abdomen soft, non-tender, nondistended. Positive bowel sounds MUSCULOSKELETAL: Extremities without clubbing, cyanosis, or edema. Pedal pulses appreciated, tender to touch or movement lower extremity NEUROLOGICAL: Awake and alert but demented. Moves upper extremity, lower extremity very tender to touch or doing any movement. Patient only mention her name A/P Problem List: (1) Encephalopathy, unspecified ICD Code: G93.40 Status: Acute (2) Hypertensive urgency ICD Code: I16.0 Status: Acute (3) Elevated troponin ICD Code: R74.8 Status: Acute (4) Chronic kidney disease, stage 3 ICD Code: N18.3 Status: Acute (5) Atrial fibrillation ICD Code: I48.91 Status: Acute (6) Chronic ischemic right MCA stroke ICD Code: Z86.73 Status: Acute (7) COPD (chronic obstructive pulmonary disease) ICD Code: J44.9 Status: Acute Assessment and Plan 11/01: Patient continued to refuse pills, blood pressure is managed through iv medication, will consult palliative care, discussed with the son and with the nurse 11/02:I reviewed palliative care notes appreciated their input, recommending continue trying to see the patient able to comply with her medical regimen so she can go back to the rehabilitation otherwise she continued to decline her nutrition per medication and maybe she is qualified for hospice again 86 years old female presented to the ED with Encephalopathy, unspecified Likely secondary to urinary tract infection, worsening dementia from change in home environment, not taking medications, hypertensive urgency We'll control blood pressure, continue treatment for urinary tract infection, see if patient improves Start Haldol for any agitation or aggression Obtain further labs to include B12, folate, TSH, RPR, sedimentation rate We'll obtain CT scan of the brain Hypertensive urgency Secondary to patient not taking her medication from the encephalopathy Start Apresoline when necessary, Nitropaste, Vasotec IV as needed for systolic blood pressure greater than 160, diastolic blood pressure greater than 90 Once patient is more alert, resume home medications however patient refused the pills Elevated troponin, non-ST elevated myocardial infarction Likely secondary to hypertensive urgency Patient was given aspirin emergency department On Nitropaste Check lipid panel Continue trending cardiac enzymes and EKGs Urinary tract infection, with +1 tube blood culture with staph species most likely contamination Urinalysis did not indicate any acute abnormality during this hospitalization Resume Zyvox Chronic obstructive pulmonary disease Continue O2 supplementation maintain O2 sats greater than 92% Duo nebs as needed Incentive spirometry Coronary artery disease, hyperlipidemia, chronic atrial fibrillation Continue home medication when patient is more alert and tolerate oral medications Patient is on Eliquis for anticoagulation, will resume when patient is able tolerate by mouth medication Hypothyroidism TSH WNL Resume replacement therapy when patient is able tolerate by mouth medications DVT prevention Sequential compression devices, resume Eliquis with patient is more alert and can tolerate by mouth medications Problem Qualifiers (1) COPD (chronic obstructive pulmonary disease): Qualified Code: J44.9 - Chronic obstructive pulmonary disease, unspecified COPD type Alexus Conner MD November 02, 2016 11:13
[2016-11-03 00:28] VITALS: BP 140/89; PULSE 70; RESP 18; TEMP 97; O2SAT 98
[2016-11-03] MEDS: NITROGLYCERIN 2% OINT 1 GM PACKET TOPICAL SCH ×3 (00:52→11:44)
[2016-11-03] MEDS: LINEZOLID 600 MG PREMIX 300 ML IV SCH ×2 (00:55→11:44)
[2016-11-03] MEDS: ACETAMINOPHEN 325 MG TAB PO PRN ×2 (01:38→11:59)
[2016-11-03 04:12] VITALS: BP 160/73; PULSE 71; RESP 16; TEMP 97.9; O2SAT 97
[2016-11-03] MEDS: LEVOTHYROXINE SODIUM 50 MCG TAB PO SCH (06:01)
[2016-11-03 09:46] VITALS: BP 183/102; PULSE 67; RESP 15; TEMP 97.4; O2SAT 98
[2016-11-03] MEDS: SODIUM CHLORIDE 0.9% FLUSH 10 ML FLUSH IV FLUSH SCH (11:39)
[2016-11-03] MEDS: GABAPENTIN 100 MG CAP PO SCH (11:40)
[2016-11-03] MEDS: PRAVASTATIN SOD 40 MG TAB PO SCH (11:40)
[2016-11-03] MEDS: hydrALAZINE HCL 25 MG TAB PO SCH (11:40)
[2016-11-03] MEDS: CITALOPRAM HYDROBROMIDE 20 MG TAB PO SCH (11:40)
[2016-11-03] MEDS: ALLOPURINOL 100 MG TAB PO SCH (11:40)
[2016-11-03] MEDS: METOLAZONE 2.5 MG TAB PO SCH (11:40)
[2016-11-03] MEDS: FUROSEMIDE 40 MG TAB PO SCH (11:40)
[2016-11-03] MEDS: SODIUM CHLOR 0.45% 1000 ML INJ 1,000 ML IV SCH (11:41)
[2016-11-03] MEDS: APIXABAN 2.5 MG TABLET PO SCH (11:41)
[2016-11-03] MEDS: MAGNESIUM OXIDE 400 MG TAB PO SCH (11:44)
[2016-11-03] MEDS ORDERED: HYDR25TA35 PO (12:14)
[2016-11-03] MEDS ORDERED: NITR2OIN TOPICAL (12:14)
[2016-11-03] MEDS ORDERED: NORC5TAB PO (12:17)
[2016-11-03] MEDS ORDERED: hydrALAZINE HCL 25 MG TAB PO SCH (13:00)
[2016-11-03 14:20] VITALS: BP 117/57; PULSE 77; RESP 16; TEMP 97.2; O2SAT 98
--- NOTE | 2016-11-03 18:44 | HHI.DS ---
Discharge Summary Admission Date October 31, 2016 at 12:16 Discharge Date: November 03, 2016 Admitting Diagnosis NSTEMI, AMS, Delirium (1) Encephalopathy, unspecified ICD Code: G93.40 Diagnosis: Principal (2) Hypertensive urgency ICD Code: I16.0 Diagnosis: Principal (3) Elevated troponin ICD Code: R74.8 Diagnosis: Principal (4) Chronic kidney disease, stage 3 ICD Code: N18.3 Diagnosis: Secondary (5) Atrial fibrillation ICD Code: I48.91 Diagnosis: Secondary (6) Chronic ischemic right MCA stroke ICD Code: Z86.73 Diagnosis: Secondary (7) COPD (chronic obstructive pulmonary disease) ICD Code: J44.9 Diagnosis: Secondary Procedures None Brief History - From Admission 86-year-old female with dementia, mental status who is brought to the emergency department from local nursing facility because of worsening mentation. The patient herself cannot give any information, information was taken from medical records, nursing staff, detention records. Family patient is a recent hospitalization at [facility] on October 22, 2016 because she had unwitnessed fall at assisted living facility. Where she had a left femoral neck fracture. Patient did undergo left hip arthroplasty by Dr. Yu at that time. Patient was found to have urinary tract infection was treated with Zyvox. However patient was transferred to [facility] for continued management and care. Apparently the patient has had worsening of her mentation aware of the last 2 day she has been refusing taking any of her medications. Patient came very aggressive and not taking her meds so detention sent the patient to the hospital for evaluation. Upon presentation patient had significantly elevated hypertension with hypertensive urgency. Patient was given Apresoline in emergency department with minimal results. Patient was found to have elevated troponin level and that point it recommended by ER physician the patient be observed in the hospital for continued management and care. Upon seeing the patient she is unable to give any information. Significant change in mentation, unknown what her baseline is from her dementia. CBC/BMP: 11/02/16 0630 11/02/16 0630 Significant Findings Laboratory Tests Test 10/31/16 11/01/16 11/01/16 11/02/16 22:40 07:35 18:13 06:30 Troponin I 0.12 NG/ML (0.02-0.05) Folate GREATER THAN 20.0 NG/ML (3.1-17.5) Red Blood Count 3.95 MIL/MM3 3.73 MIL/MM3 (4.00-5.30) (4.00-5.30) Neutrophils (%) (Auto) 85.3 % 84.7 % (16.0-70.0) (16.0-70.0) Lymphocytes (%) (Auto) 7.3 % (9.0-44.0) Neutrophils # (Auto) 8.9 TH/MM3 8.7 TH/MM3 (1.8-7.7) (1.8-7.7) Lymphocytes # (Auto) 0.8 TH/MM3 (1.0-4.8) Potassium Level 2.9 MEQ/L 3.4 MEQ/L 3.2 MEQ/L (3.5-5.1) (3.5-5.1) (3.5-5.1) Blood Urea Nitrogen 28 MG/DL (7-18) 24 MG/DL (7-18) Estimat Glomerular Filtration 59 ML/MIN (>89) 54 ML/MIN (>89) Rate Random Glucose 122 MG/DL 117 MG/DL (74-106) (74-106) Total Protein 6.2 GM/DL (6.4-8.2) Albumin 2.4 GM/DL (3.4-5.0) Hemoglobin 11.4 GM/DL (11.6-15.3) Hematocrit 33.8 % (35.0-46.0) Sodium Level 133 MEQ/L (136-145) Chloride Level 97 MEQ/L (98-107) PE at Discharge GENERAL: This is a well-nourished, frail elderly 86 years old female , looks comfortable but demented SKIN: No rashes, warm and dry HEAD: Atraumatic. Normocephalic. EYES: Pupils equal round and reactive. Extraocular motions intact. No scleral icterus. ENT: Nose without bleeding, or drainage, Airway patent. NECK: Trachea midline. Supple CARDIOVASCULAR: Regular rate and rhythm without murmurs, gallops, or rubs. RESPIRATORY: Fair air entry bilaterally. No wheezes, rales, or rhonchi. GASTROINTESTINAL: Abdomen soft, non-tender, nondistended. Positive bowel sounds MUSCULOSKELETAL: Extremities without clubbing, cyanosis, or edema. Pedal pulses appreciated, tender to touch or movement lower extremity NEUROLOGICAL: Awake and alert but demented. Moves upper extremity, lower extremity very tender to touch or doing any movement. Patient only mention her name Hospital Course 86 years old female presented to the ED from the SNF facility due to worsening mental status he was found to have encephalopathy possibly hypertensive, she had hypertensive urgency/emergency, elevated troponin most likely due to hypertensive urgency, treated with nitroglycerin paste present wean Vasotec as needed, patient has been showing behavior of refusing her medication constantly so we are consulted palliative care after lengthy discussion with the son patient was a DNR they don't need any aggressive measures, so we try to discuss with the patient eventually she turned back with a nice behavior she was smiling to me today, she agree to take her medication so plan was to discharge her back to the SNF if she continued to decline treatment and medication most likely the plan as elected by the son is to get her comfort care. [id number] encounter performed with the patient on discharge day, as well as physical exam, summary of hospitalization course and postdischarge plan has been D/W the patient. D/W nurse D/W clinical case manager. Discharge medications reviewed and printed and signed, post discharge follow up visit with PCP and other specialist as well as Brief hospital course and discharge summary has been placed. Pt Condition on Discharge: Stable Discharge Disposition: Discharge to SNF Discharge Time: > 30 minutes Discharge Instructions DIET: Follow Instructions for: Heart Healthy Diet Activities you can perform: See Additionl Instruction Other Activity Instructions: Per PT New Medications: Hydrocodone-Acetaminophen ([place]) 5-325 mg Tab 1 TAB PO Q6H PRN pain >5 #10 Ref 0 TAB Hydralazine (Hydralazine) 25 Mg Tab 25 MG PO q6h htn #120 TAB Nitroglycerin Topical (Nitro-Bid Topical) 2 % Oint 1 INCH TOPICAL Q6HR htn #3 TUBE Continued Medications: Albuterol 18 GM Inh (Ventolin Hfa 18 GM Inh) 90 Mcg/Act Aer 2 PUFF INH Q6H PRN SHORTNESS OF BREATH #1 Ref 0 INHALER Allopurinol (Allopurinol) 100 Mg Tab 100 MG PO DAILY Gout #30 Ref 0 TAB Apixaban (Eliquis) 2.5 Mg Tab 2.5 MG PO BID Blood Clot Prevention Ref 0 TAB Citalopram (Citalopram) 20 Mg Tab 20 MG PO DAILY Control Depression #30 Ref 0 TAB Docusate Sodium (Docusate Sodium) 100 Mg Cap 100 MG PO BID Prevent Constipation #60 Ref 0 CAP Furosemide (Furosemide) 40 Mg Tab 40 MG PO DAILY #30 Ref 0 TAB Gabapentin (Gabapentin) 100 Mg Cap 200 MG PO BID #60 Ref 0 CAP Latanoprost Opth Drops (Latanoprost Opth Drops) 0.005% Drops 1 DROP EACH EYE HS Refrigerate until opened. Glaucoma #2.5 Ref 0 ML Levothyroxine (Levothyroxine) 50 Mcg Tab 50 MCG PO DAILY Thyroid #30 Ref 0 TAB Linezolid (Zyvox) 600 Mg Tab 600 MG PO Q12H Infection Ref 0 TAB Magnesium Oxide (Magnesium Oxide) 500 Mg Tab 500 MG PO BID Ref 0 TAB Metolazone (Metolazone) 2.5 Mg Tab 2.5 MG PO DAILY #30 Ref 0 TAB Nitroglycerin SL (Nitroglycerin SL) 0.4 Mg Subl 0.4 MG SL DIRECTED ONE TABLET UNDER THE TONGUE NEEDED FOR CHEST PAIN, MAY REPEAT EVERY FIVE MINUTES FOR A TOTAL OF 3 DOSES OR CALL 911 IF NO RELIEF PRN CHEST PAIN #100 Ref 0 TAB.SL Potassium Chloride ER (Potassium Chloride ER) 10 Meq Cap 10 MEQ PO HS Electrolyte Replacement #30 Ref 0 CAP Pravastatin (Pravastatin) 40 Mg Tab 40 MG PO DAILY Cholesterol Management #30 Ref 0 TAB Discontinued Medications: Hydralazine (Hydralazine) 25 Mg Tab 25 MG PO TID Take with a meal Blood Pressure Management #90 Ref 0 TAB Alexus Conner MD November 03, 2016 18:44
== END 2016-11-03 15:20 ==
LOC: PHED 10:31 → PHEDA 12:16 → PH3B 14:05
PROVIDERS: ADMIT Hospitalist; ATTEND Hospitalist
DX: G93.40 Encephalopathy, unspecified (principal); I16.0 Hypertensive urgency; N39.0 Urinary tract infection, site not specified; I25.10 Atherosclerotic heart disease of native coronary artery without angina pectoris; J44.9 Chronic obstructive pulmonary disease, unspecified; E78.5 Hyperlipidemia, unspecified; R79.89 Other specified abnormal findings of blood chemistry; I48.2 Chronic atrial fibrillation; M19.90 Unspecified osteoarthritis, unspecified site; I13.0 Hypertensive heart and chronic kidney disease with heart failure and stage 1 through stage 4 chronic kidney disease, or unspecified chronic kidney disease; N18.3 Chronic kidney disease, stage 3 (moderate); I50.9 Heart failure, unspecified; K21.9 Gastro-esophageal reflux disease without esophagitis; E03.9 Hypothyroidism, unspecified; G62.9 Polyneuropathy, unspecified; F03.90 Unspecified dementia, unspecified severity, without behavioral disturbance, psychotic disturbance, mood disturbance, and anxiety; H91.90 Unspecified hearing loss, unspecified ear; I25.2 Old myocardial infarction; M10.9 Gout, unspecified; F41.9 Anxiety disorder, unspecified; F32.9 Major depressive disorder, single episode, unspecified; Z79.51 Long term (current) use of inhaled steroids; Z86.73 Personal history of transient ischemic attack (TIA), and cerebral infarction without residual deficits; Z88.0 Allergy status to penicillin; Z87.891 Personal history of nicotine dependence; Z79.01 Long term (current) use of anticoagulants; Z95.1 Presence of aortocoronary bypass graft; Z95.5 Presence of coronary angioplasty implant and graft; Z96.642 Presence of left artificial hip joint; Z66 Do not resuscitate
CPT/HCPCS: 70450; 71010; 73110; 80048; 80053; 80061; 81001; 82550; 82607; 82746; 83605; 84132; 84443; 84484; 85025; 85610; 85652; 85730; 86592; 87040; 87077; 87186; 87205; 93005; 96360; 99285; G0378; J0360; J1630; J2020; J7030; P9612